=== PATIENT | male | born 1955 | race African-American/Black ===

== ENCOUNTER 2017-03-13 10:16 | Emergency (ER) | payer OTHER ==
[~2017-03-13] VITALS: Ht 175.3 cm; Wt 113.4 kg
[~2017-03-13 10:16] MED LIST: AMLO10TA2 PO; ARIP2TAB PO; ARIP5TAB6 PO; BICA50TA4 PO; CALC-507 PO; SITA50TA PO; htn med
[2017-03-13 10:35] VITALS: BP 130/71
[2017-03-13] MEDS ORDERED: DIPHTH,PERTUSS(ACELL),TET TOX 0.5 ML DISP.SYRIN. VAX IM ONE (11:15)
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
[2017-03-13] MEDS ORDERED: MELO-156 PO (11:30)
[2017-03-13] MEDS ORDERED: QUET100T4 PO (11:30)
[2017-03-13] MEDS ORDERED: SERT50TA PO (11:30)
[2017-03-13 11:31] LABS: BASO # 0.1 x10^3/uL (0.0-0.2); BASO % 1 % (0-3); EOS % 2 % (0-3); HEMATOCRIT 38.2 % (39.0-53.0); HEMOGLOBIN 12.5 g/dL (13.0-17.5); LYMPH # 1.4 x10^3/uL (1.0-4.8); LYMPH % 20 % (24-48); MEAN CORPUSCULAR HEMOGLOBIN 27 pg (25-35); MEAN CORPUSCULAR HGB CONC 33 g/dL (31-37); MEAN CORPUSCULAR VOLUME 82 fL (79-100); MONO % 12 % (0-9); NEUT % 65 % (31-73); PLATELET COUNT 204 x10^3/uL (140-400); RED BLOOD COUNT 4.64 x10^6/uL (4.30-5.70); RED CELL DISTRIBUTION WIDTH 16.5 % (11.5-14.5)
[2017-03-13 11:38] LABS: BILIRUBIN,URINE NEGATIVE (NEG); GLUCOSE,URINE NEGATIVE (NEG); NITRITE,URINE NEGATIVE (NEG); PROTEIN,URINE NEGATIVE (NEG-TRACE)
[2017-03-13 11:45] LABS: CALCIUM 8.8 mg/dL (8.5-10.1); CREATININE 0.8 mg/dL (0.7-1.3); GFR 119.7; POTASSIUM 4.2 mmol/L (3.5-5.1)
[2017-03-13 11:46] LABS: BACTERIA,URINE FEW /HPF (0-FEW); RBC,URINE 0 /HPF (0-2); SQUAMOUS EPITHELIAL CELL,UR MANY /LPF
[2017-03-13 11:50] LABS: ALBUMIN 3.3 g/dL (3.4-5.0); ALBUMIN/GLOBULIN RATIO 0.7 (1.0-1.7); TOTAL BILIRUBIN 0.4 mg/dL (0.2-1.0); TOTAL PROTEIN 8.1 g/dL (6.4-8.2)
--- NOTE | 2017-03-13 12:03 | EKG ---
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
--- NOTE | 2017-03-13 12:10 | RAD ---
One or more of the following individualized dose reduction techniques were utilized for this examination: 1. Automated exposure control 2. Adjustment of the mA and/or kV according to patient size 3. Use of iterative reconstruction technique CT of the brain without contrast. History: Poor historian, falls CT scan of brain was done without contrast. Visualized paranasal sinuses are clear. There is no skull fracture. There is no intracranial hemorrhage or subdural hematoma. Ventricles are normal in size. There is no mass or shift of the midline. There is decreased density in the white matter especially in the frontal lobes. There is no old study for comparison. Impression: 1. Decreased density in the white matter likely microvascular changes. 2. No intracranial hemorrhage or subdural hematoma noted. 3. No other acute finding.
[2017-03-13 12:12] LABS: BARBITURATES NEG (NEG); BENZODIAZEPINES NEG (NEG); CANNABINOIDS POS (NEG); COCAINE NEG (NEG); METHADONE NEG (NEG); OPIATES POS (NEG); PHENCYCLIDINE NEG (NEG)
--- NOTE | 2017-03-13 12:40 | RAD ---
Ultrasound of the abdomen complete. History: Left flank and abdominal pain with abrasion Ultrasound was used to evaluate the abdomen. Pancreas is poorly visualized, portions of the head and mid body were normal but the tail is obscured. A focal liver lesion is not identified. There is mild echogenicity of the liver suggesting fatty infiltration. Right kidney was 13 cm in length without a mass or hydronephrosis. Gallbladder was normal without gallstones or gallbladder wall thickening. Common duct was normal measuring 4 mm. Spleen is nonenlarged but not optimally visualized. Left kidney is 13.4 cm in length without a mass or hydronephrosis. The aorta and vena cava are poorly evaluated. Proximal aorta is 1.9 cm. Vena cava at the liver was normal. Impression: 1. Fatty infiltration of the liver. 2. Limited evaluation of the aorta, pancreas and spleen. 3. No other acute abnormality noted.
== END 2017-03-13 13:29 | disposition home or self-care (01) ==
LOC: ER 10:16
DX: S30.811A Abrasion of abdominal wall, initial encounter (principal); S80.211A Abrasion, right knee, initial encounter; M54.9 Dorsalgia, unspecified; F19.10 Other psychoactive substance abuse, uncomplicated; F31.9 Bipolar disorder, unspecified; E10.9 Type 1 diabetes mellitus without complications; I10 Essential (primary) hypertension; W19.XXXA Unspecified fall, initial encounter; Y93.89 Activity, other specified; Y92.89 Other specified places as the place of occurrence of the external cause; Y99.8 Other external cause status
CPT/HCPCS: 36415; 70450; 76700; 80053; 80305; 80320; 81001; 85027; 90471; 90715; 93005; G0480; G0481; 99285-25

== ENCOUNTER → 2017-06-26 | Outpatient (CLI) | payer OTHER ==
[~2017-06-26] MED LIST changes: -ARIP2TAB PO; +ARIP2TAB3 PO; +ARIP5TAB13 PO; -ARIP5TAB6 PO; +MELO7.5T29 PO; +QUET100T4 PO; +SERT50TA PO
[2017-06-26 13:53] LABS: BASO # 0.1 x10^3/uL (0.0-0.2); BASO % 1 % (0-3); EOS % 2 % (0-3); HEMATOCRIT 40.9 % (39.0-53.0); HEMOGLOBIN 13.2 g/dL (13.0-17.5); LYMPH # 1.8 x10^3/uL (1.0-4.8); LYMPH % 26 % (24-48); MEAN CORPUSCULAR HEMOGLOBIN 27 pg (25-35); MEAN CORPUSCULAR HGB CONC 32 g/dL (31-37); MEAN CORPUSCULAR VOLUME 84 fL (79-100); MONO % 11 % (0-9); NEUT % 60 % (31-73); PLATELET COUNT 184 x10^3/uL (140-400); RED BLOOD COUNT 4.88 x10^6/uL (4.30-5.70); RED CELL DISTRIBUTION WIDTH 17.3 % (11.5-14.5); WHITE BLOOD COUNT 6.9 x10^3/uL (4.0-11.0)
[2017-06-26 14:13] LABS: ALBUMIN 3.6 g/dL (3.4-5.0); ALBUMIN/GLOBULIN RATIO 0.8 (1.0-1.7); CALCIUM 9.2 mg/dL (8.5-10.1); CREATININE 0.8 mg/dL (0.7-1.3); GFR 119.3; POTASSIUM 3.9 mmol/L (3.5-5.1); TOTAL BILIRUBIN 0.3 mg/dL (0.2-1.0); TOTAL PROTEIN 8.4 g/dL (6.4-8.2)
[2017-06-26 14:14] LABS: CHOLESTEROL/HDL RATIO 4.5
== END | disposition home or self-care (01) ==
LOC: LAB 13:34
PROVIDERS: ATTEND Specialist
DX: I10 Essential (primary) hypertension (principal); E11.9 Type 2 diabetes mellitus without complications
CPT/HCPCS: 36415; 80053; 80061; 83036; 85025

== ENCOUNTER 2018-02-04 13:37 | Emergency (ER) | payer OTHER ==
[2018-02-04 13:53] LABS: POC GLUCOSE 247 mg/dL (70-99)
[2018-02-04 14:08] LABS: AGAP ISTAT 14 mmol/L (6-14); BUN ISTAT 7 mg/dL (8-26); CHLORIDE ISTAT 103 mmol/L (98-110); CREATININE ISTAT 0.8 mg/dL (0.5-1.4); GLUCOSE ISTAT 259 mg/dL (70-99); HEMATOCRIT ISTAT 42 % (37-52); HEMOGLOBIN ISTAT 14.3 g/dL (14-18); ION CA ISTAT 1.15 mmol/L (1.13-1.32); POTASSIUM ISTAT 3.7 mmol/L (3.5-5.0); SODIUM ISTAT 142 mmol/L (135-145); TOT CO2 ISTAT 29 mmol/L (23-32)
[2018-02-04] MEDS: IV NORMAL SALINE 1000ML BAG 1,000 ML IV (14:14)
[2018-02-04 15:24] LABS: BILIRUBIN,URINE NEGATIVE (NEG); CLARITY,URINE CLEAR; COLOR,URINE YELLOW; GLUCOSE,URINE >=1000 mg/dL (NEG); NITRITE,URINE NEGATIVE (NEG); PH,URINE 5.5; PROTEIN,URINE NEGATIVE (NEG-TRACE)
[2018-02-04 15:30] LABS: BACTERIA,URINE 0 /HPF (0-FEW); RBC,URINE RARE /HPF (0-2); WBC,URINE RARE /HPF (0-4)
[2018-02-04 15:31] LABS: SQUAMOUS EPITHELIAL CELL,UR MOD /LPF
== END 2018-02-04 15:23 | disposition home or self-care (01) ==
LOC: ER 13:37
DX: E11.65 Type 2 diabetes mellitus with hyperglycemia (principal); I10 Essential (primary) hypertension; F31.9 Bipolar disorder, unspecified
CPT/HCPCS: 36415; 80047; 81001; 82962; 85014; 85018; 96360; 99284-25; J7030

== ENCOUNTER 2018-04-23 10:17 | Emergency (ER) | payer OTHER ==
[2018-04-23 11:06] LABS: ADD MAN DIFF? NO
[2018-04-23 11:09] LABS: BASO # 0.1 x10^3/uL (0.0-0.2); BASO % 1 % (0-3); EOS # 0.2 x10^3/uL (0.0-0.7); EOS % 3 % (0-3); HEMOGLOBIN 14.5 g/dL (13.0-17.5); LYMPH # 1.3 x10^3/uL (1.0-4.8); LYMPH % 22 % (24-48); MEAN CORPUSCULAR HEMOGLOBIN 29 pg (25-35); MEAN CORPUSCULAR HGB CONC 34 g/dL (31-37); MEAN CORPUSCULAR VOLUME 85 fL (79-100); MONO # 0.6 x10^3/uL (0.0-1.1); MONO % 11 % (0-9); NEUT # 3.6 x10^3uL (1.8-7.7); NEUT % 63 % (31-73); PLATELET COUNT 217 x10^3/uL (140-400); RED BLOOD COUNT 5.05 x10^6/uL (4.30-5.70); RED CELL DISTRIBUTION WIDTH 17.8 % (11.5-14.5); WHITE BLOOD COUNT 5.8 x10^3/uL (4.0-11.0)
[2018-04-23 11:48] LABS: ETHANOL < 10 mg/dL (0-10)
[2018-04-23 11:55] LABS: ALBUMIN 3.6 g/dL (3.4-5.0); ALBUMIN/GLOBULIN RATIO 0.8 (1.0-1.7); ALK PHOS 60 U/L (46-116); ALT (SGPT) 52 U/L (16-63); ANION GAP 5 (6-14); AST (SGOT) 27 U/L (15-37); BLOOD UREA NITROGEN 12 mg/dL (8-26); BUN/CREATININE RATIO 13 (6-20); CALCIUM 8.6 mg/dL (8.5-10.1); CARBON DIOXIDE 31 mmol/L (21-32); CHLORIDE 103 mmol/L (98-107); CREATININE 0.9 mg/dL (0.7-1.3); GFR 103.8; GLUCOSE 105 mg/dL (70-99); POTASSIUM 4.1 mmol/L (3.5-5.1); SODIUM 139 mmol/L (136-145); TOTAL BILIRUBIN 0.4 mg/dL (0.2-1.0); TOTAL PROTEIN 8.1 g/dL (6.4-8.2)
[2018-04-23 12:06] LABS: CKMB INDEX 0.4 % (0-4); CKMB MASS 1.1 ng/mL (0.0-3.6); CREATINE KINASE 304 U/L (39-308)
[2018-04-23 12:12] LABS: TROPONINI < 0.017 ng/mL (0.000-0.055)
== END 2018-04-23 14:37 | disposition home or self-care (01) ==
LOC: ER 10:17
DX: S39.012A Strain of muscle, fascia and tendon of lower back, initial encounter (principal); S63.501A Unspecified sprain of right wrist, initial encounter; F10.129 Alcohol abuse with intoxication, unspecified; Z72.0 Tobacco use; F31.9 Bipolar disorder, unspecified; E11.9 Type 2 diabetes mellitus without complications; I10 Essential (primary) hypertension; W18.39XA Other fall on same level, initial encounter; Y93.89 Activity, other specified; Y99.8 Other external cause status; Y92.89 Other specified places as the place of occurrence of the external cause
CPT/HCPCS: 36415; 70450; 72100; 72125; 73110; 80053; 82553; 83735; 84484; 85025; 93005; 99285-25; G0480

== ENCOUNTER 2018-05-27 12:59 | Inpatient (IN) | payer OTHER ==
[~2018-05-27] VITALS: Ht 175.3 cm; Wt 117.9 kg
[~2018-05-27 12:59] MED LIST changes: +TRAM-48 PO
[2018-05-27] MEDS ORDERED: IPRATRPIUM/ALBUTEROL 0.5/2.5MG 3 ML NEBU. NEB ONE (14:30)
--- NOTE | 2018-05-27 14:35 | RAD ---
Portable chest, 05/27/2018: HISTORY: Weight cough Comparison is made to a study from 06/07/2014. The heart is at the upper limits of normal in size. The pulmonary vascularity is normal. The lung bases are partially obscured by the patient's overlying abdominal pannus. There is probably mild bibasilar atelectasis. The upper lung palma are clear. There is no evidence of pleural fluid. IMPRESSION: Mild basilar atelectasis. Electronically signed by: Man Gonzalez MD (05/27/2018 2:31 PM) [facility]
[2018-05-27] MEDS ORDERED: methylPREDNISolone SOD SUCC PF 125 MG/2 ML VIAL. IV ONE (14:45)
--- NOTE | 2018-05-27 16:32 | PHYS DOC ---
Past Medical History Past Medical History: Bipolar, Cancer, Diabetes-Type II, Hypertension Additional Past Medical Histor: prostate ca Past Surgical History: TURP Additional Past Surgical Histo: CA prostate, finger tips removed Alcohol Use: Heavy Drug Use: None Adult General Chief Complaint Chief Complaint: COUGH HPI HPI Patient is a 63 year old male with history of hypertension diabetes type 2, smoking, bipolar, who presents today with shortness of breath or month and a cough that began yesterday. Patient denies any chest pain. He arrives in the ED with oxygen saturations at 90 or even below on room air. Denies any previous oxygen use at home. PCP Dr. Larson. Review of Systems Review of Systems Constitutional: Denies fever or chills [] Eyes: Denies change in visual acuity, redness, or eye pain [] HENT: Denies nasal congestion or sore throat [] Respiratory: Reports cough and shortness of breath Cardiovascular: No additional information not addressed in HPI [] GI: Denies abdominal pain, nausea, vomiting, bloody stools or diarrhea [] : Denies dysuria or hematuria [] Musculoskeletal: Denies back pain or joint pain [] Integument: Denies rash or skin lesions [] Neurologic: Denies headache, focal weakness or sensory changes [] All other systems were reviewed and found to be within normal limits, except as documented in this note. Current Medications Current Medications Current Medications Medications (Trade) Dose Ordered Sig/Tiffanie Start Time Stop Time Status Last Admin Dose Admin Albuterol/ Ipratropium (Duoneb) 3 ml 1X ONCE 05/27/18 14:30 05/27/18 14:31 DC 05/27/18 14:42 3 ML Methylprednisolone Sodium Succinate (SOLU-Medrol 125MG VIAL) 125 mg 1X ONCE 05/27/18 14:45 05/27/18 14:46 DC 05/27/18 16:54 125 MG Allergies Allergies Allergies Coded Allergies Type Severity Reaction Last Updated Verified No Known Drug Allergies 06/07/14 No Physical Exam Physical Exam Constitutional: Obese. Well developed, well nourished, no acute distress, non- toxic appearance. [] HENT: Normocephalic, atraumatic, bilateral external ears normal, oropharynx moist, no oral exudates, nose normal. [] Eyes: PERRLA, EOMI, conjunctiva normal, no discharge. [] Neck: Normal range of motion, no tenderness, supple, no stridor. [] Cardiovascular:Heart rate regular rhythm, no murmur [] Lungs & Thorax: Diminished breath sounds posterior lung bases, patient is on oxygen 2 L. Abdomen: Bowel sounds normal, soft, no tenderness, no masses, no pulsatile masses. [] Skin: Warm, dry, no erythema, no rash. [] Back: No tenderness, no CVA tenderness. [] Extremities: No tenderness, no cyanosis, no clubbing, ROM intact, no edema. [] Neurologic: Alert and oriented X 3, normal motor function, normal sensory function, no focal deficits noted. [] Psychologic: Affect normal, judgement normal, mood normal. [] Current Patient Data Vital Signs Vital Signs Date Time Temp Pulse Resp B/P (MAP) Pulse Ox O2 Delivery O2 Flow Rate FiO2 05/27/18 14:42 91 Nasal Cannula 2.0 05/27/18 13:50 97.9 85 20 125/74 (91) 97.9 EKG EKG 16:[address] Diana sinus rhythm heart rate 85 no STEMI[] Radiology/Procedures Radiology/Procedures []PROCEDURE: CHEST AP ONLY Portable chest, 05/27/2018: HISTORY: Weight cough Comparison is made to a study from 06/07/2014. The heart is at the upper limits of normal in size. The pulmonary vascularity is normal. The lung bases are partially obscured by the patient's overlying abdominal pannus. There is probably mild bibasilar atelectasis. The upper lung palma are clear. There is no evidence of pleural fluid. IMPRESSION: Mild basilar atelectasis. Electronically signed by: Man Gonzalez MD (05/27/2018 2:31 PM) [facility] DICTATED and SIGNED BY: MAN GONZALEZ MD DATE: 05/27/18 1429 Course & Med Decision Making Course & Med Decision Making Pertinent Labs and Imaging studies reviewed. (See chart for details) This is a 63-year-old male patient with history of smoking presenting today with cough and shortness of breath since yesterday. Patient arrives in the ED with oxygen saturations at 90% on room air and sometimes below 90%. We put him on oxygen 2 L. Saturations improved and remained above 90%. He was given a breathing treatment. Given Solu-Medrol. Tried weaning him off oxygen with no success. We'll get him admitted. Dragon Disclaimer Dragon Disclaimer This electronic medical record was generated, in whole or in part, using a voice recognition dictation system. Departure Departure Impression: Primary Impression: COPD exacerbation Additional Impressions: Cough Shortness of breath Disposition: ADMITTED INPATIENT Condition: STABLE Referrals: SAMEERA HIGUERA MD (PCP) Problem Qualifiers GINO MERIDA APRN May 27, 2018 16:32
[2018-05-27 16:43] LABS: BASO # 0.1 x10^3/uL (0.0-0.2); BASO % 1 % (0-3); EOS # 0.2 x10^3/uL (0.0-0.7); EOS % 2 % (0-3); HEMATOCRIT 38.2 % (39.0-53.0); HEMOGLOBIN 12.6 g/dL (13.0-17.5); LYMPH # 1.7 x10^3/uL (1.0-4.8); LYMPH % 20 % (24-48); MEAN CORPUSCULAR HEMOGLOBIN 28 pg (25-35); MEAN CORPUSCULAR HGB CONC 33 g/dL (31-37); MEAN CORPUSCULAR VOLUME 85 fL (79-100); MONO # 1.1 x10^3/uL (0.0-1.1); MONO % 12 % (0-9); NEUT # 5.7 x10^3uL (1.8-7.7); NEUT % 65 % (31-73); PLATELET COUNT 194 x10^3/uL (140-400); RED BLOOD COUNT 4.48 x10^6/uL (4.30-5.70); RED CELL DISTRIBUTION WIDTH 16.8 % (11.5-14.5); WHITE BLOOD COUNT 8.7 x10^3/uL (4.0-11.0)
[2018-05-27 16:52] LABS: CREATININE 0.8 mg/dL (0.7-1.3); GFR 118.9; POTASSIUM 3.3 mmol/L (3.5-5.1)
[2018-05-27] MEDS ORDERED: DEXTROSE 50% 25 GM / 50ML DISP.SYRIN. IV PRN ×2 (17:00→17:30)
[2018-05-27] MEDS ORDERED: MORPHINE SULFATE 4 MG/ML DISP.SYRIN. IV PRN (17:00)
[2018-05-27] MEDS ORDERED: INSULIN LISPRO 300 UNITS/3 ML INSULN.PEN. SQ SCH (17:00)
[2018-05-27] MEDS ORDERED: ACETAMINOPHEN 325 MG TABLET. PO PRN ×2 (17:00→17:30)
[2018-05-27] MEDS ORDERED: ONDANSETRON PF 4 MG/2 ML VIAL. IV PRN ×2 (17:00→17:30)
--- NOTE | 2018-05-27 17:28 | PDOC1 ---
History and Physical Date of Admission Date of Admission 05/27/18 Identification/Chief Complaint Chief Complaint COUGH ,SOB Source Source: Caregiver, Chart review, Patient History of Present Illness History of Present Illness HPI Patient is a 63 year old male with history of hypertension diabetes type 2, smoking, bipolar, COMes to ER for sob. 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 He started to cough a lot from yesterday, with yellow sputum, sob, child care leader called EMS who suggested him to come to ER, and he said he would come today. Pt had some wheezing. He has no home o2, now on NC2L IN ER, looks calm. Denies chest pain, fever, had chills. He also has bl leg severe edema for 1 week , feels abd distended. He arrives in the ED with oxygen saturations at 90 or even below on room air. last year MPI neg with EF 55%. Past Medical History Cardiovascular: HTN Pulmonary: No pertinent hx GI: GERD Heme/Onc: Cancer Hepatobiliary: No pertinent hx Psych: Bipolar Rheumatologic: No pertinent hx Infectious disease: No pertinent hx Renal/: No pertinent hx Endocrine: Diabetes Past Surgical History Past Surgical History: Other Family History Family History: Hypertension Social History Smoke: 1 pack per day ALCOHOL: occassional Drugs: None Current Problem List Problem List Problems Medical Problems: (1) COPD exacerbation Status: Acute (2) Cough Status: Acute (3) Shortness of breath Status: Acute Current Medications Current Medications Current Medications Medications (Trade) Dose Ordered Sig/Tiffanie Start Time Stop Time Status Last Admin Dose Admin Acetaminophen (Tylenol) 650 mg PRN Q6HRS PRN 05/27/18 17:30 UNV Albuterol Sulfate (Ventolin Neb Soln) 2.5 mg PRN Q2HR PRN 05/27/18 17:30 UNV Albuterol/ Ipratropium (Duoneb) 3 ml RTQID 05/27/18 20:00 UNV Dextrose (Dextrose 50%-Water Syringe) 12.5 gm PRN Q15MIN PRN 05/27/18 17:00 Docusate Sodium (Colace) 100 mg PRN DAILY PRN 05/27/18 17:30 UNV Guaifenesin (Mucinex) 600 mg BID 05/27/18 21:00 UNV Hydralazine HCl (Apresoline Inj) 10 mg PRN Q4HRS PRN 05/27/18 17:30 UNV Insulin Human Lispro (HumaLOG) 0-5 UNITS TIDWMEALS 05/27/18 17:00 Methylprednisolone Sodium Succinate (SOLU-Medrol 40MG VIAL) 40 mg Q8HRS 05/27/18 22:00 Methylprednisolone Sodium Succinate (SOLU-Medrol 125MG VIAL) 125 mg 1X ONCE 05/27/18 14:45 05/27/18 14:46 DC 05/27/18 16:54 125 MG Morphine Sulfate (Morphine Sulfate) 2 mg PRN Q2HR PRN 05/27/18 17:30 UNV Ondansetron HCl (Zofran) 4 mg PRN Q6HRS PRN 05/27/18 17:30 UNV Tramadol HCl (Ultram) 50 mg PRN Q6HRS PRN 05/27/18 17:30 UNV Allergies Allergies Allergies Coded Allergies Type Severity Reaction Last Updated Verified No Known Drug Allergies 06/07/14 No ROS Review of System CONSTITUTIONAL: No fever or chills EYES: No recent changes SKIN: No rash or itching CARDIOVASCULAR: No chest pain, syncope, palpitations, or edema RESPIRATORY: No SOB or cough GASTROINTESTINAL: No nausea, vomiting or abdominal pain NEUROLOGICAL: No headaches or weakness ENDOCRINE: No cold or heat intolerance GENITOURINARY: No urgency or frequency of urination MUSCULOSKELETAL: No back pain or joint pain LYMPHATICS: No enlarged lymph nodes PSYCHIATRIC: No anxiety or depression Physical Exam Physical Exam GEN.: No apparent distress. Alert and oriented. on NC 2l. HEENT: Head is normocephalic, atraumatic NECK: Supple. LUNGS: bl decreased bs, mild wheezing. HEART: RRR, S1, S2 present. Peripheral pulses intact ABDOMEN: Soft, nontender. Positive bowel sounds. mild distended abd, tight. EXTREMITIES: Without any cyanosis. bl lower ext 3+ pitting edema. rt 5th finger amputated. NEUROLOGIC: Normal speech, normal tone PSYCHIATRIC: Normal affect, normal mood. SKIN: No ulcerations Vitals Vitals Vital Signs Date Time Temp Pulse Resp B/P (MAP) Pulse Ox O2 Delivery O2 Flow Rate FiO2 05/27/18 14:42 91 Nasal Cannula 2.0 05/27/18 13:50 97.9 85 20 125/74 (91) 97.9 Labs Labs Laboratory Tests Test 05/27/18 16:30 White Blood Count 8.7 x10^3/uL (4.0-11.0) Red Blood Count 4.48 x10^6/uL (4.30-5.70) Hemoglobin 12.6 g/dL (13.0-17.5) Hematocrit 38.2 % (39.0-53.0) Mean Corpuscular Volume 85 fL (79-100) Mean Corpuscular Hemoglobin 28 pg (25-35) Mean Corpuscular Hemoglobin Concent 33 g/dL (31-37) Red Cell Distribution Width 16.8 % (11.5-14.5) Platelet Count 194 x10^3/uL (140-400) Neutrophils (%) (Auto) 65 % (31-73) Lymphocytes (%) (Auto) 20 % (24-48) Monocytes (%) (Auto) 12 % (0-9) Eosinophils (%) (Auto) 2 % (0-3) Basophils (%) (Auto) 1 % (0-3) Neutrophils # (Auto) 5.7 x10^3uL (1.8-7.7) Lymphocytes # (Auto) 1.7 x10^3/uL (1.0-4.8) Monocytes # (Auto) 1.1 x10^3/uL (0.0-1.1) Eosinophils # (Auto) 0.2 x10^3/uL (0.0-0.7) Basophils # (Auto) 0.1 x10^3/uL (0.0-0.2) Sodium Level 137 mmol/L (136-145) Potassium Level 3.3 mmol/L (3.5-5.1) Chloride Level 103 mmol/L (98-107) Carbon Dioxide Level 28 mmol/L (21-32) Anion Gap 6 (6-14) Blood Urea Nitrogen 12 mg/dL (8-26) Creatinine 0.8 mg/dL (0.7-1.3) Estimated GFR (Cockcroft-Gault) 118.9 Glucose Level 129 mg/dL (70-99) Calcium Level 9.0 mg/dL (8.5-10.1) Creatine Kinase 582 U/L (39-308) Creatine Kinase MB (Mass) 1.6 ng/mL (0.0-3.6) Creatine Kinase MB Relative Index 0.3 % (0-4) Troponin I Quantitative 0.029 ng/mL (0.000-0.055) Laboratory Tests Test 05/27/18 16:30 White Blood Count 8.7 x10^3/uL (4.0-11.0) Red Blood Count 4.48 x10^6/uL (4.30-5.70) Hemoglobin 12.6 g/dL (13.0-17.5) Hematocrit 38.2 % (39.0-53.0) Mean Corpuscular Volume 85 fL (79-100) Mean Corpuscular Hemoglobin 28 pg (25-35) Mean Corpuscular Hemoglobin Concent 33 g/dL (31-37) Red Cell Distribution Width 16.8 % (11.5-14.5) Platelet Count 194 x10^3/uL (140-400) Neutrophils (%) (Auto) 65 % (31-73) Lymphocytes (%) (Auto) 20 % (24-48) Monocytes (%) (Auto) 12 % (0-9) Eosinophils (%) (Auto) 2 % (0-3) Basophils (%) (Auto) 1 % (0-3) Neutrophils # (Auto) 5.7 x10^3uL (1.8-7.7) Lymphocytes # (Auto) 1.7 x10^3/uL (1.0-4.8) Monocytes # (Auto) 1.1 x10^3/uL (0.0-1.1) Eosinophils # (Auto) 0.2 x10^3/uL (0.0-0.7) Basophils # (Auto) 0.1 x10^3/uL (0.0-0.2) Sodium Level 137 mmol/L (136-145) Potassium Level 3.3 mmol/L (3.5-5.1) Chloride Level 103 mmol/L (98-107) Carbon Dioxide Level 28 mmol/L (21-32) Anion Gap 6 (6-14) Blood Urea Nitrogen 12 mg/dL (8-26) Creatinine 0.8 mg/dL (0.7-1.3) Estimated GFR (Cockcroft-Gault) 118.9 Glucose Level 129 mg/dL (70-99) Calcium Level 9.0 mg/dL (8.5-10.1) Creatine Kinase 582 U/L (39-308) Creatine Kinase MB (Mass) 1.6 ng/mL (0.0-3.6) Creatine Kinase MB Relative Index 0.3 % (0-4) Troponin I Quantitative 0.029 ng/mL (0.000-0.055) VTE Prophylaxis Ordered VTE Prophylaxis Devices: Yes VTE Pharmacological Prophylaxi: Yes Assessment/Plan Assessment/Plan acute resp failure, hypoxia copd exacerbation given smoking bronchitis need to rule out CHF exacerbation dm2 htn 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 ABG lasix 40mg iv daily doxy solemedrol ssi duoneb dvt, gi ppx PTOT BASILIO PATINO MD May 27, 2018 17:28
[2018-05-27] MEDS ORDERED: MORPHINE SULFATE 2 MG/ML DISP.SYRIN. IV PRN (17:30)
[2018-05-27] MEDS ORDERED: POTASSIUM CHLORIDE 20 MEQ TABLET.ER. PO ONE (17:30)
[2018-05-27] MEDS ORDERED: DOCUSATE SODIUM 100 MG CAPSULE. PO PRN (17:30)
[2018-05-27] MEDS ORDERED: traMADol 50 MG TABLET PO PRN (17:30)
[2018-05-27] MEDS: IPRATRPIUM/ALBUTEROL 0.5/2.5MG 3 ML NEBU. NEB SCH ×2 (17:30→21:46)
[2018-05-27] MEDS ORDERED: ALBUTEROL SULFATE 2.5 MG/3 ML NEBU. NEB PRN (17:30)
[2018-05-27] MEDS ORDERED: hydrALAZINE 20 MG/ML VIAL. IVP PRN (17:30)
[2018-05-27 17:48] VITALS: BP 129/68
[2018-05-27] MEDS: FUROSEMIDE 40 MG/4 ML VIAL. IVP SCH (18:14)
[2018-05-27] MEDS: ENOXAPARIN 40 MG/0.4 ML SYRINGE. SQ SCH (18:15)
[2018-05-27 19:00] VITALS: BP 147/82
[2018-05-27] MEDS ORDERED: IPRATRPIUM/ALBUTEROL 0.5/2.5MG 3 ML NEBU. NEB SCH (20:00)
[2018-05-27] MEDS: DOXYCYCLINE HYCLATE 100 MG TABLET PO SCH (22:11)
[2018-05-27] MEDS: FAMOTIDINE 20 MG TABLET. PO SCH (22:11)
[2018-05-27] MEDS: LACTOBACILLUS RHAMNOSUS GG 1 CAPSULE. PO SCH (22:11)
[2018-05-27] MEDS: methylPREDNISolone SOD SUCC PF 40 MG/ML VIAL. IV SCH (22:15)
[2018-05-27 23:00] VITALS: BP 121/71
[2018-05-27 23:02] LABS: BASE EXCESS ABG 3 mmol/L (-3-3); HCO3 ABG 28 mmol/L (21-28); PCO2 ABG 43 mmHg (35-46); PO2 ABG 59 mmHg (65-108); SAT O2 ABG 91 % (92-99)
[2018-05-27] MEDS ORDERED: GLIM4TAB2 PO (23:39)
[2018-05-27] MEDS ORDERED: GABA300C8 PO (23:39)
[2018-05-27] MEDS ORDERED: ATOR40TA59 PO (23:39)
[2018-05-28 03:00] VITALS: BP 128/77
[2018-05-28] MEDS: methylPREDNISolone SOD SUCC PF 40 MG/ML VIAL. IV SCH ×3 (05:47→21:49)
--- NOTE | 2018-05-28 06:43 | EKG ---
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
[2018-05-28 07:00] VITALS: BP 122/69
[2018-05-28 07:11] LABS: BASO % 1 % (0-3); EOS % 0 % (0-3); HEMATOCRIT 41.4 % (39.0-53.0); HEMOGLOBIN 13.9 g/dL (13.0-17.5); LYMPH # 0.8 x10^3/uL (1.0-4.8); LYMPH % 9 % (24-48); MEAN CORPUSCULAR HEMOGLOBIN 29 pg (25-35); MEAN CORPUSCULAR HGB CONC 34 g/dL (31-37); MEAN CORPUSCULAR VOLUME 85 fL (79-100); MONO # 0.1 x10^3/uL (0.0-1.1); MONO % 1 % (0-9); NEUT # 8.2 x10^3uL (1.8-7.7); NEUT % 89 % (31-73); PLATELET COUNT 195 x10^3/uL (140-400); RED BLOOD COUNT 4.89 x10^6/uL (4.30-5.70); RED CELL DISTRIBUTION WIDTH 16.8 % (11.5-14.5); WHITE BLOOD COUNT 9.2 x10^3/uL (4.0-11.0)
[2018-05-28] MEDS: IPRATRPIUM/ALBUTEROL 0.5/2.5MG 3 ML NEBU. NEB SCH ×4 (07:16→19:47)
[2018-05-28 07:26] LABS: CALCIUM 8.8 mg/dL (8.5-10.1); CREATININE 0.9 mg/dL (0.7-1.3); GFR 103.8; POTASSIUM 3.8 mmol/L (3.5-5.1)
[2018-05-28] MEDS: DOXYCYCLINE HYCLATE 100 MG TABLET PO SCH ×2 (08:29→21:49)
[2018-05-28] MEDS: LACTOBACILLUS RHAMNOSUS GG 1 CAPSULE. PO SCH ×2 (08:29→21:48)
[2018-05-28] MEDS: FUROSEMIDE 40 MG/4 ML VIAL. IVP SCH (08:30)
[2018-05-28] MEDS: INSULIN LISPRO 300 UNITS/3 ML INSULN.PEN. SQ SCH ×3 (08:37→17:43)
[2018-05-28 11:00] VITALS: BP 125/74
--- NOTE | 2018-05-28 11:31 | PDOC ---
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 hypokalemia History of Present Illness History of Present Illness breathing better Decreased breath sounds, poor effort, increased AP diameter but I could not appreciate audible wheezing CXR atelectasis, poor effort Plan CPM Aim discharge tomorrow-I discussed with him he agrees Vitals Vitals Vital Signs Date Time Temp Pulse Resp B/P (MAP) Pulse Ox O2 Delivery O2 Flow Rate FiO2 05/28/18 11:18 Room Air 05/28/18 11:00 98.1 75 16 125/74 (91) 91 98.1 05/28/18 07:50 3.0 Physical Exam General: Alert, Oriented X3, Cooperative, No acute distress Heart: Regular rate, Normal S1, Normal S2 Lungs: Other (decrease breath sounds) Abdomen: No tenderness Extremities: No clubbing, No cyanosis, No edema Skin: No rashes, No breakdown, No significant lesion Labs LABS Laboratory Tests Test 05/27/18 16:30 05/27/18 17:25 05/27/18 17:52 05/27/18 20:58 White Blood Count 8.7 x10^3/uL (4.0-11.0) Red Blood Count 4.48 x10^6/uL (4.30-5.70) Hemoglobin 12.6 g/dL (13.0-17.5) Hematocrit 38.2 % (39.0-53.0) Mean Corpuscular Volume 85 fL (79-100) Mean Corpuscular Hemoglobin 28 pg (25-35) Mean Corpuscular Hemoglobin Concent 33 g/dL (31-37) Red Cell Distribution Width 16.8 % (11.5-14.5) Platelet Count 194 x10^3/uL (140-400) Neutrophils (%) (Auto) 65 % (31-73) Lymphocytes (%) (Auto) 20 % (24-48) Monocytes (%) (Auto) 12 % (0-9) Eosinophils (%) (Auto) 2 % (0-3) Basophils (%) (Auto) 1 % (0-3) Neutrophils # (Auto) 5.7 x10^3uL (1.8-7.7) Lymphocytes # (Auto) 1.7 x10^3/uL (1.0-4.8) Monocytes # (Auto) 1.1 x10^3/uL (0.0-1.1) Eosinophils # (Auto) 0.2 x10^3/uL (0.0-0.7) Basophils # (Auto) 0.1 x10^3/uL (0.0-0.2) Sodium Level 137 mmol/L (136-145) Potassium Level 3.3 mmol/L (3.5-5.1) Chloride Level 103 mmol/L (98-107) Carbon Dioxide Level 28 mmol/L (21-32) Anion Gap 6 (6-14) Blood Urea Nitrogen 12 mg/dL (8-26) Creatinine 0.8 mg/dL (0.7-1.3) Estimated GFR (Cockcroft-Gault) 118.9 Glucose Level 129 mg/dL (70-99) Calcium Level 9.0 mg/dL (8.5-10.1) Creatine Kinase 582 U/L (39-308) Creatine Kinase MB (Mass) 1.6 ng/mL (0.0-3.6) Creatine Kinase MB Relative Index 0.3 % (0-4) Troponin I Quantitative 0.029 ng/mL (0.000-0.055) JT-Zrn-T-Type Natriuretic Peptide 23 pg/mL (0-124) O2 Saturation 91 % (92-99) Arterial Blood pH 7.43 (7.35-7.45) Arterial Blood pCO2 at Patient Temp 43 mmHg (35-46) Arterial Blood pO2 at Patient Temp 59 mmHg (65-108) Arterial Blood HCO3 28 mmol/L (21-28) Arterial Blood Base Excess 3 mmol/L (-3-3) FiO2 28.0 Glucose (Fingerstick) 114 mg/dL (70-99) 201 mg/dL (70-99) Test 05/28/18 06:55 05/28/18 07:46 05/28/18 11:02 White Blood Count 9.2 x10^3/uL (4.0-11.0) Red Blood Count 4.89 x10^6/uL (4.30-5.70) Hemoglobin 13.9 g/dL (13.0-17.5) Hematocrit 41.4 % (39.0-53.0) Mean Corpuscular Volume 85 fL (79-100) Mean Corpuscular Hemoglobin 29 pg (25-35) Mean Corpuscular Hemoglobin Concent 34 g/dL (31-37) Red Cell Distribution Width 16.8 % (11.5-14.5) Platelet Count 195 x10^3/uL (140-400) Neutrophils (%) (Auto) 89 % (31-73) Lymphocytes (%) (Auto) 9 % (24-48) Monocytes (%) (Auto) 1 % (0-9) Eosinophils (%) (Auto) 0 % (0-3) Basophils (%) (Auto) 1 % (0-3) Neutrophils # (Auto) 8.2 x10^3uL (1.8-7.7) Lymphocytes # (Auto) 0.8 x10^3/uL (1.0-4.8) Monocytes # (Auto) 0.1 x10^3/uL (0.0-1.1) Eosinophils # (Auto) 0.0 x10^3/uL (0.0-0.7) Basophils # (Auto) 0.0 x10^3/uL (0.0-0.2) Sodium Level 135 mmol/L (136-145) Potassium Level 3.8 mmol/L (3.5-5.1) Chloride Level 100 mmol/L (98-107) Carbon Dioxide Level 28 mmol/L (21-32) Anion Gap 7 (6-14) Blood Urea Nitrogen 12 mg/dL (8-26) Creatinine 0.9 mg/dL (0.7-1.3) Estimated GFR (Cockcroft-Gault) 103.8 Glucose Level 252 mg/dL (70-99) Calcium Level 8.8 mg/dL (8.5-10.1) Glucose (Fingerstick) 235 mg/dL (70-99) 305 mg/dL (70-99) Review of Systems Review of Systems A 14 point ROS was completed with the following noted as positive: Other systems reviewed and negative. \CONSTITUTIONAL: No fever or chills EYES: No recent changes SKIN: No rash or itching CARDIOVASCULAR: No chest pain, syncope, palpitations, or edema RESPIRATORY: No SOB or cough GASTROINTESTINAL: No nausea, vomiting or abdominal pain NEUROLOGICAL: No headaches or weakness ENDOCRINE: No cold or heat intolerance GENITOURINARY: No urgency or frequency of urination MUSCULOSKELETAL: No back pain or joint pain LYMPHATICS: No enlarged lymph nodes PSYCHIATRIC: No anxiety or depression Assessment and Plan Assessmemt and Plan Problems Medical Problems: (1) COPD exacerbation Status: Acute (2) Cough Status: Acute (3) Shortness of breath Status: Acute Comment Review of Relevant I have reviewed the following items timbo (where applicable) has been applied. Labs Laboratory Tests Test 05/27/18 16:30 05/27/18 17:25 05/27/18 17:52 05/27/18 20:58 White Blood Count 8.7 x10^3/uL (4.0-11.0) Red Blood Count 4.48 x10^6/uL (4.30-5.70) Hemoglobin 12.6 g/dL (13.0-17.5) Hematocrit 38.2 % (39.0-53.0) Mean Corpuscular Volume 85 fL (79-100) Mean Corpuscular Hemoglobin 28 pg (25-35) Mean Corpuscular Hemoglobin Concent 33 g/dL (31-37) Red Cell Distribution Width 16.8 % (11.5-14.5) Platelet Count 194 x10^3/uL (140-400) Neutrophils (%) (Auto) 65 % (31-73) Lymphocytes (%) (Auto) 20 % (24-48) Monocytes (%) (Auto) 12 % (0-9) Eosinophils (%) (Auto) 2 % (0-3) Basophils (%) (Auto) 1 % (0-3) Neutrophils # (Auto) 5.7 x10^3uL (1.8-7.7) Lymphocytes # (Auto) 1.7 x10^3/uL (1.0-4.8) Monocytes # (Auto) 1.1 x10^3/uL (0.0-1.1) Eosinophils # (Auto) 0.2 x10^3/uL (0.0-0.7) Basophils # (Auto) 0.1 x10^3/uL (0.0-0.2) Sodium Level 137 mmol/L (136-145) Potassium Level 3.3 mmol/L (3.5-5.1) Chloride Level 103 mmol/L (98-107) Carbon Dioxide Level 28 mmol/L (21-32) Anion Gap 6 (6-14) Blood Urea Nitrogen 12 mg/dL (8-26) Creatinine 0.8 mg/dL (0.7-1.3) Estimated GFR (Cockcroft-Gault) 118.9 Glucose Level 129 mg/dL (70-99) Calcium Level 9.0 mg/dL (8.5-10.1) Creatine Kinase 582 U/L (39-308) Creatine Kinase MB (Mass) 1.6 ng/mL (0.0-3.6) Creatine Kinase MB Relative Index 0.3 % (0-4) Troponin I Quantitative 0.029 ng/mL (0.000-0.055) BR-Eez-A-Type Natriuretic Peptide 23 pg/mL (0-124) O2 Saturation 91 % (92-99) Arterial Blood pH 7.43 (7.35-7.45) Arterial Blood pCO2 at Patient Temp 43 mmHg (35-46) Arterial Blood pO2 at Patient Temp 59 mmHg (65-108) Arterial Blood HCO3 28 mmol/L (21-28) Arterial Blood Base Excess 3 mmol/L (-3-3) FiO2 28.0 Glucose (Fingerstick) 114 mg/dL (70-99) 201 mg/dL (70-99) Test 05/28/18 06:55 05/28/18 07:46 05/28/18 11:02 White Blood Count 9.2 x10^3/uL (4.0-11.0) Red Blood Count 4.89 x10^6/uL (4.30-5.70) Hemoglobin 13.9 g/dL (13.0-17.5) Hematocrit 41.4 % (39.0-53.0) Mean Corpuscular Volume 85 fL (79-100) Mean Corpuscular Hemoglobin 29 pg (25-35) Mean Corpuscular Hemoglobin Concent 34 g/dL (31-37) Red Cell Distribution Width 16.8 % (11.5-14.5) Platelet Count 195 x10^3/uL (140-400) Neutrophils (%) (Auto) 89 % (31-73) Lymphocytes (%) (Auto) 9 % (24-48) Monocytes (%) (Auto) 1 % (0-9) Eosinophils (%) (Auto) 0 % (0-3) Basophils (%) (Auto) 1 % (0-3) Neutrophils # (Auto) 8.2 x10^3uL (1.8-7.7) Lymphocytes # (Auto) 0.8 x10^3/uL (1.0-4.8) Monocytes # (Auto) 0.1 x10^3/uL (0.0-1.1) Eosinophils # (Auto) 0.0 x10^3/uL (0.0-0.7) Basophils # (Auto) 0.0 x10^3/uL (0.0-0.2) Sodium Level 135 mmol/L (136-145) Potassium Level 3.8 mmol/L (3.5-5.1) Chloride Level 100 mmol/L (98-107) Carbon Dioxide Level 28 mmol/L (21-32) Anion Gap 7 (6-14) Blood Urea Nitrogen 12 mg/dL (8-26) Creatinine 0.9 mg/dL (0.7-1.3) Estimated GFR (Cockcroft-Gault) 103.8 Glucose Level 252 mg/dL (70-99) Calcium Level 8.8 mg/dL (8.5-10.1) Glucose (Fingerstick) 235 mg/dL (70-99) 305 mg/dL (70-99) Laboratory Tests Test 05/27/18 16:30 05/27/18 17:25 05/27/18 17:52 05/27/18 20:58 White Blood Count 8.7 x10^3/uL (4.0-11.0) Red Blood Count 4.48 x10^6/uL (4.30-5.70) Hemoglobin 12.6 g/dL (13.0-17.5) Hematocrit 38.2 % (39.0-53.0) Mean Corpuscular Volume 85 fL (79-100) Mean Corpuscular Hemoglobin 28 pg (25-35) Mean Corpuscular Hemoglobin Concent 33 g/dL (31-37) Red Cell Distribution Width 16.8 % (11.5-14.5) Platelet Count 194 x10^3/uL (140-400) Neutrophils (%) (Auto) 65 % (31-73) Lymphocytes (%) (Auto) 20 % (24-48) Monocytes (%) (Auto) 12 % (0-9) Eosinophils (%) (Auto) 2 % (0-3) Basophils (%) (Auto) 1 % (0-3) Neutrophils # (Auto) 5.7 x10^3uL (1.8-7.7) Lymphocytes # (Auto) 1.7 x10^3/uL (1.0-4.8) Monocytes # (Auto) 1.1 x10^3/uL (0.0-1.1) Eosinophils # (Auto) 0.2 x10^3/uL (0.0-0.7) Basophils # (Auto) 0.1 x10^3/uL (0.0-0.2) Sodium Level 137 mmol/L (136-145) Potassium Level 3.3 mmol/L (3.5-5.1) Chloride Level 103 mmol/L (98-107) Carbon Dioxide Level 28 mmol/L (21-32) Anion Gap 6 (6-14) Blood Urea Nitrogen 12 mg/dL (8-26) Creatinine 0.8 mg/dL (0.7-1.3) Estimated GFR (Cockcroft-Gault) 118.9 Glucose Level 129 mg/dL (70-99) Calcium Level 9.0 mg/dL (8.5-10.1) Creatine Kinase 582 U/L (39-308) Creatine Kinase MB (Mass) 1.6 ng/mL (0.0-3.6) Creatine Kinase MB Relative Index 0.3 % (0-4) Troponin I Quantitative 0.029 ng/mL (0.000-0.055) EC-Mbb-F-Type Natriuretic Peptide 23 pg/mL (0-124) O2 Saturation 91 % (92-99) Arterial Blood pH 7.43 (7.35-7.45) Arterial Blood pCO2 at Patient Temp 43 mmHg (35-46) Arterial Blood pO2 at Patient Temp 59 mmHg (65-108) Arterial Blood HCO3 28 mmol/L (21-28) Arterial Blood Base Excess 3 mmol/L (-3-3) FiO2 28.0 Glucose (Fingerstick) 114 mg/dL (70-99) 201 mg/dL (70-99) Test 05/28/18 06:55 05/28/18 07:46 05/28/18 11:02 White Blood Count 9.2 x10^3/uL (4.0-11.0) Red Blood Count 4.89 x10^6/uL (4.30-5.70) Hemoglobin 13.9 g/dL (13.0-17.5) Hematocrit 41.4 % (39.0-53.0) Mean Corpuscular Volume 85 fL (79-100) Mean Corpuscular Hemoglobin 29 pg (25-35) Mean Corpuscular Hemoglobin Concent 34 g/dL (31-37) Red Cell Distribution Width 16.8 % (11.5-14.5) Platelet Count 195 x10^3/uL (140-400) Neutrophils (%) (Auto) 89 % (31-73) Lymphocytes (%) (Auto) 9 % (24-48) Monocytes (%) (Auto) 1 % (0-9) Eosinophils (%) (Auto) 0 % (0-3) Basophils (%) (Auto) 1 % (0-3) Neutrophils # (Auto) 8.2 x10^3uL (1.8-7.7) Lymphocytes # (Auto) 0.8 x10^3/uL (1.0-4.8) Monocytes # (Auto) 0.1 x10^3/uL (0.0-1.1) Eosinophils # (Auto) 0.0 x10^3/uL (0.0-0.7) Basophils # (Auto) 0.0 x10^3/uL (0.0-0.2) Sodium Level 135 mmol/L (136-145) Potassium Level 3.8 mmol/L (3.5-5.1) Chloride Level 100 mmol/L (98-107) Carbon Dioxide Level 28 mmol/L (21-32) Anion Gap 7 (6-14) Blood Urea Nitrogen 12 mg/dL (8-26) Creatinine 0.9 mg/dL (0.7-1.3) Estimated GFR (Cockcroft-Gault) 103.8 Glucose Level 252 mg/dL (70-99) Calcium Level 8.8 mg/dL (8.5-10.1) Glucose (Fingerstick) 235 mg/dL (70-99) 305 mg/dL (70-99) Medications Current Medications Albuterol/ Ipratropium (Duoneb) 3 ml 1X ONCE NEB Last administered on at 14:42; Start 05/27/18 at 14:30; Stop 05/27/18 at 14:31; Status DC Methylprednisolone Sodium Succinate (SOLU-Medrol 125MG VIAL) 125 mg 1X ONCE IV Last administered on 05/27/18at 16:54; Start 05/27/18 at 14:45; Stop 05/27/18 at 14:46; Status DC Ondansetron HCl (Zofran) 4 mg PRN Q8HRS PRN IV NAUSEA/VOMITING; Start 05/27/18 at 17:00; Stop 05/27/18 at 17:28; Status DC Morphine Sulfate (Morphine Sulfate) 4 mg PRN Q2HR PRN IV PAIN; Start 05/27/18 at 17:00; Stop 05/27/18 at 17:28; Status DC Acetaminophen (Tylenol) 650 mg PRN Q4HRS PRN PO FEVER; Start 05/27/18 at 17:00 ; Stop 05/27/18 at 17:28; Status DC Albuterol/ Ipratropium (Duoneb) 3 ml RTQID NEB ; Start 05/27/18 at 20:00; Stop 05/28/18 at 19:59; Status Cancel Methylprednisolone Sodium Succinate (SOLU-Medrol 40MG VIAL) 40 mg Q8HRS IV Last administered on 05/28/18at 05:47; Start 05/27/18 at 22:00 Insulin Human Lispro (HumaLOG) 0-5 UNITS TIDWMEALS SQ ; Start 05/27/18 at 17:00 ; Stop 05/27/18 at 17:22; Status DC Dextrose (Dextrose 50%-Water Syringe) 12.5 gm PRN Q15MIN PRN IV SEE COMMENTS; Start 05/27/18 at 17:00; Stop 05/27/18 at 17:33; Status DC Acetaminophen (Tylenol) 650 mg PRN Q6HRS PRN PO FEVER; Start 05/27/18 at 17:30 Ondansetron HCl (Zofran) 4 mg PRN Q6HRS PRN IV NAUSEA/VOMITING; Start 05/27/18 at 17:30 Morphine Sulfate (Morphine Sulfate) 2 mg PRN Q2HR PRN IV MODERATE TO SEVERE PAIN; Start 05/27/18 at 17:30 Tramadol HCl (Ultram) 50 mg PRN Q6HRS PRN PO MILD TO MODERATE PAIN; Start 05/27 at 17:30 Hydralazine HCl (Apresoline Inj) 10 mg PRN Q4HRS PRN IVP ELEVATED BP, SEE COMMENTS; Start 05/27/18 at 17:30 Docusate Sodium (Colace) 100 mg PRN DAILY PRN PO CONSTIPATION; Start 05/27/18 at 17:30 Albuterol/ Ipratropium (Duoneb) 3 ml RTQID NEB Last administered on 05/28/18at 11:17; Start 05/27/18 at 17:30 Albuterol Sulfate (Ventolin Neb Soln) 2.5 mg PRN Q2HR PRN NEB SHORTNESS OF BREATH; Start 05/27/18 at 17:30 Guaifenesin (Mucinex) 600 mg BID PO Last administered on 05/28/18at 08:30; Start 05/27/18 at 21:00 Potassium Chloride (Klor-Con) 40 meq 1X ONCE PO Last administered on at 18:14; Start 05/27/18 at 17:30; Stop 05/27/18 at 17:31; Status DC Enoxaparin Sodium (Lovenox 40mg Syringe) 40 mg Q24H SQ Last administered on 18:15; Start 05/27/18 at 18:00 Famotidine (Pepcid) 20 mg QHS PO Last administered on 05/27/18at 22:11; Start at 21:00 Insulin Human Lispro (HumaLOG) 0-9 UNITS TIDWMEALS SQ Last administered on 05/28at 08:37; Start 05/28/18 at 08:00 Dextrose (Dextrose 50%-Water Syringe) 12.5 gm PRN Q15MIN PRN IV SEE COMMENTS; Start 05/27/18 at 17:30 Furosemide (Lasix) 40 mg DAILY IVP Last administered on 05/28/18 08:30; Start 05/27/18 at 18:00 Doxycycline Hyclate (Vibra-Tab) 100 mg BID PO Last administered on 05/28/18 08 :29; Start 05/27/18 at 21:00 Lactobacillus Rhamnosus (Culturelle) 1 cap BID PO Last administered on 8/13/ 18at 08:29; Start 05/27/18 at 21:00 Active Scripts Active Reported Atorvastatin Calcium 40 Mg Tablet 40 Mg PO DAILY Gabapentin 300 Mg Capsule 300 Mg PO BID Zoloft (Sertraline Hcl) 50 Mg Tablet 50 Mg PO DAILY Seroquel (Quetiapine Fumarate) 100 Mg Tablet 100 Mg PO HS Meloxicam 7.5 Mg Tablet 7.5 Mg PO BID Calcium 600 + D Tablet (Calcium Carbonate/Vitamin D3) 1 Each Tablet 1 Each PO DAILY Abilify (Aripiprazole) 5 Mg Tablet 1 Tab PO DAILY Amlodipine Besylate 10 Mg Tablet 10 Mg PO DAILY Januvia (Sitagliptin Phosphate) 50 Mg Tablet 50 Mg PO DAILY Vitals/I & O Vital Sign - Last 24 Hours 05/27/18 05/27/18 05/27/18 05/27/18 13:50 14:23 14:42 15:12 Temp 97.9 97.9 Pulse 85 75 85 Resp 20 24 22 B/P (MAP) 125/74 (91) 111/69 (83) 107/60 (76) Pulse Ox 90 93 91 91 O2 Delivery Room Air Nasal Cannula Nasal Cannula Nasal Cannula O2 Flow Rate 2.0 2.0 2.0 05/27/18 05/27/18 05/27/18 05/27/18 15:42 16:31 16:42 17:48 Temp 99.1 99.1 Pulse 82 78 77 80 Resp 18 23 18 16 B/P (MAP) 114/57 (76) 104/55 (71) 107/58 (74) 129/68 (88) Pulse Ox 93 91 93 O2 Delivery Nasal Cannula Nasal Cannula Nasal Cannula O2 Flow Rate 2.0 2.0 2.0 2.0 05/27/18 05/27/18 05/27/18 05/27/18 17:55 19:00 20:30 21:45 Temp 98.8 98.8 Pulse 85 Resp 18 B/P (MAP) 147/82 (103) Pulse Ox 95 O2 Delivery Nasal Cannula Room Air Nasal Cannula Nasal Cannula O2 Flow Rate 2.0 2.0 2.0 05/27/18 05/28/18 05/28/18 05/28/18 23:00 03:00 07:00 07:16 Temp 98.2 98.8 97.7 98.2 98.8 97.7 Pulse 83 82 77 Resp 18 18 16 B/P (MAP) 121/71 (88) 128/77 (94) 122/69 (86) Pulse Ox 94 97 90 97 O2 Delivery Room Air Room Air Room Air Nasal Cannula O2 Flow Rate 3.0 05/28/18 05/28/18 05/28/18 07:50 11:00 11:18 Temp 98.1 98.1 Pulse 75 Resp 16 B/P (MAP) 125/74 (91) Pulse Ox 91 O2 Delivery Nasal Cannula Room Air Room Air O2 Flow Rate 3.0 Intake and Output 05/27/18 05/27/18 05/28/18 15:00 23:00 07:00 Output Total 750 ml 0 ml Balance -750 ml 0 ml URI CHASE MD May 28, 2018 11:31
[2018-05-28 12:00] LABS: % BANDS 1 % (0-9); % LYMPHS 16 % (24-48); % MONOS 1 % (0-10); % SEGS 82 % (35-66); PLT ESTIMATE ADEQUATE (ADEQUATE)
--- NOTE | 2018-05-28 12:14 | CARD ---
MR#: [id number] Date of Study: 05/28/2018 Ordering Physician: BASILIO PATINO, Referring Physician: BASILIO PATINO Tech: Eneida Michaud RDCS APPROVED REPORT EXAM: Two-dimensional and M-mode echocardiogram with Doppler and color Doppler. Other Information Quality : Good INDICATION Dyspnea Question CHF 2D DIMENSIONS RVDd3.3 (2.9-3.5cm)Left Atrium(2D)3.6 (1.6-4.0cm) IVSd1.2 (0.7-1.1cm)Aortic Root(2D)3.3 (2.0-3.7cm) LVDd5.0 (3.9-5.9cm)LVOT Diameter2.0 (1.8-2.4cm) PWd1.1 (0.7-1.1cm)LVDs2.6 (2.5-4.0cm) FS (%) 30.0 %SV93.5 ml LVEF(%)55.0 (>50%) Aortic Valve AoV Peak Shaquille.178.4cm/sAoV VTI35.8cm AO Peak GR.12.7mmHgLVOT Peak Shaquille.125.6cm/s LVOT VTI 28.65cmAO Mean GR.8mmHg VEENA (VMAX)2.39mh1CUZ (VTI)2.63cm2 Mitral Valve MV E Erxhdwwe085.7cm/sMV DECEL [id number] MV A Gkxuufnk89.3cm/sMV [id number] E/A Ratio1.3MVA (PHT)4.43cm2 TDI E/Lateral E'11.8E/Medial E'14.8 Tricuspid Valve TR P. Urvmbzxz392fm/sRAP FUKOAFYP7fiNq TR Peak Gr.53paAdTHAQ52zkOw Pulmonary Vein S1 Ygstvvku29.2cm/sD2 Ixnngqpf90.2cm/s LEFT VENTRICLE The left ventricle is normal size. There is mild concentric left ventricular hypertrophy. The left ve ntricular systolic function is normal and the Ejection Fraction is 55%. There is normal LV segmental wall motion. RIGHT VENTRICLE The right ventricle is normal size. The right ventricular systolic function is normal. ATRIA The left atrium size is normal. The right atrium size is normal. The interatrial septum is intact wit h no evidence for an atrial septal defect or patent foramen ovale as noted on 2-D or Doppler imaging. AORTIC VALVE The aortic valve is calcified but opens well. Doppler and Color Flow revealed no significant aortic r egurgitation. There is no significant aortic valvular stenosis. MITRAL VALVE The mitral valve is calcified but opens well. There is no evidence of mitral valve prolapse. There is no mitral valve stenosis. Doppler and Color-flow revealed trace mitral regurgitation. TRICUSPID VALVE The tricuspid valve is normal in structure and function. Doppler and Color Flow revealed trace tricus pid regurgitation. The PA pressure was estimated at 24 mmHg. There is no tricuspid valve stenosis. PULMONIC VALVE The pulmonic valve is not well visualized. Doppler and Color Flow revealed no pulmonic valvular regur gitation. There is no pulmonic valvular stenosis. GREAT VESSELS The aortic root is normal in size. The ascending aorta is normal in size. The IVC is normal in size a nd collapses >50% with inspiration. PERICARDIAL EFFUSION There is no evidence of significant pericardial effusion. Critical Notification Critical Value: No <Conclusion> The left ventricular systolic function is normal and the Ejection Fraction is 55%. There is mild concentric left ventricular hypertrophy. The left atrium size is normal. The right atrium size is normal. The aortic valve is calcified but opens well. Doppler and Color Flow revealed no significant aortic regurgitation. Doppler and Color-flow revealed trace mitral regurgitation. The mitral valve is calcified but opens well. Doppler and Color Flow revealed trace tricuspid regurgitation. The PA pressure was estimated at 24 mmHg. The pulmonic valve is not well visualized. There is no evidence of significant pericardial effusion. Signed by : Jose Simmons MD Electronically Approved : 05/28/2018 12:13:11
[2018-05-28 15:00] VITALS: BP 134/68
--- NOTE | 2018-05-28 16:05 | CONS ---
DATE OF CONSULTATION: ATTENDING PHYSICIAN: Dr. Escobar. REASON FOR CONSULTATION: Cough. HISTORY OF PRESENT ILLNESS: The patient is a 63-year-old male who was a smoker and alcoholic. He said he was drinking whiskey, then he started coughing and then had emesis. He was a little bit short of breath as well. He feels fine now. He was seen in the Emergency Room, he was placed on couple of liters of oxygen. His chest x-ray was reviewed by me. There is no definite consolidation seen on the chest x-ray, possible right basal atelectasis. PAST MEDICAL HISTORY: History of hypertension, GERD, possible COPD and bipolar disorder and diabetes. PAST SURGICAL HISTORY: No recent surgeries. ALLERGIES: None. MEDICATIONS: Reviewed as listed in the MRAD. REVIEW OF SYSTEMS: As discussed in my history of present illness, otherwise noncontributory. SOCIAL HISTORY: Ongoing tobaccoism and alcoholism. PHYSICAL EXAMINATION: VITAL SIGNS: Stable. NECK: Supple. LUNGS: Clear. CARDIOVASCULAR: Regular rate and rhythm. ABDOMEN: Soft and obese. EXTREMITIES: With trace pitting edema. LABORATORY DATA: Reviewed. White cell count hemoglobin 13.9, platelets are 195. BUN 12, creatinine 0.9. IMPRESSION: 1. Cough, likely related to bronchitis. May have a silent aspiration after drinking whiskey. 2. Ongoing tobaccoism, suspect underlying chronic obstructive pulmonary disease. 3. History of alcoholism. 4. Bilateral lower extremity edema without any obvious congestive heart failure. RECOMMENDATIONS: 1. From a pulmonary standpoint, he looks much better. He has no cough. His chest x-ray is clear. He is afebrile, he could be discharged home on oral antibiotics. The steroids can be discontinued. 2. Smoking cessation counseling provided. 3. Discussed with RN. We will sign off for now. LIZ FULLER MD DR: LILLIAM/lisha JOB#: [id number] / [id number] MARTA
[2018-05-28] MEDS: SERTRALINE 50 MG TABLET. PO SCH (17:36)
[2018-05-28] MEDS: ARIPiprazole 5 MG TABLET PO SCH (17:36)
[2018-05-28] MEDS: CALCIUM CARB/VIT D3 500/200 TABLET. PO SCH (17:37)
[2018-05-28] MEDS: amLODIPine BESYLATE 10 MG TABLET PO SCH (17:37)
[2018-05-28] MEDS: LINAGLIPTIN 5 MG TABLET PO SCH (17:37)
[2018-05-28] MEDS: ENOXAPARIN 40 MG/0.4 ML SYRINGE. SQ SCH (17:38)
[2018-05-28 19:00] VITALS: BP 112/61
[2018-05-28] MEDS ORDERED: INSULIN GLARGINE 300 UNITS/3 ML INSULN.PEN. SQ SCH (21:00)
[2018-05-28] MEDS ORDERED: ATORVASTATIN CALCIUM 40 MG TABLET. PO SCH (21:00)
[2018-05-28] MEDS ORDERED: QUEtiapine 100 MG TABLET. PO SCH (21:00)
[2018-05-28] MEDS ORDERED: INSULIN LISPRO 300 UNITS/3 ML INSULN.PEN. SQ ONE (21:45)
[2018-05-28] MEDS: GABAPENTIN 300 MG CAPSULE. PO SCH (21:48)
[2018-05-28] MEDS: MELOXICAM 7.5 MG TABLET PO SCH (21:49)
[2018-05-28] MEDS: FAMOTIDINE 20 MG TABLET. PO SCH (21:49)
[2018-05-28 23:00] VITALS: BP 110/57
[2018-05-29 03:00] VITALS: BP 129/63
[2018-05-29] MEDS: methylPREDNISolone SOD SUCC PF 40 MG/ML VIAL. IV SCH (06:53)
[2018-05-29 07:00] VITALS: BP 140/71
[2018-05-29] MEDS: IPRATRPIUM/ALBUTEROL 0.5/2.5MG 3 ML NEBU. NEB SCH (07:09)
[2018-05-29] MEDS ORDERED: IPRA3AMP29 NEB (09:16)
[2018-05-29] MEDS ORDERED: DOXY100T PO (09:16)
[2018-05-29] MEDS: CALCIUM CARB/VIT D3 500/200 TABLET. PO SCH (09:26)
[2018-05-29] MEDS: LACTOBACILLUS RHAMNOSUS GG 1 CAPSULE. PO SCH (09:26)
[2018-05-29] MEDS: DOXYCYCLINE HYCLATE 100 MG TABLET PO SCH (09:26)
[2018-05-29] MEDS: FUROSEMIDE 40 MG/4 ML VIAL. IVP SCH (09:26)
[2018-05-29] MEDS: ARIPiprazole 5 MG TABLET PO SCH (09:26)
[2018-05-29] MEDS: SERTRALINE 50 MG TABLET. PO SCH (09:26)
[2018-05-29] MEDS: LINAGLIPTIN 5 MG TABLET PO SCH (09:26)
[2018-05-29 09:28] VITALS: BP 140/71
[2018-05-29] MEDS: amLODIPine BESYLATE 10 MG TABLET PO SCH (09:28)
[2018-05-29] MEDS: GABAPENTIN 300 MG CAPSULE. PO SCH (09:28)
--- NOTE | 2018-05-29 09:28 | PDOC3 ---
Discharge Summary Visit Information Date of Admission: May 27, 2018 Date of Discharge: May 29, 2018 Admitting Diagnosis Comment: acute resp failure, hypoxia copd exacerbation in a smoker bronchitis Unlikely CHF exacerbation dm2 htn h/o vineyardist post sx bipolar morbid obesity tobaccoism hypokalemia Final Diagnosis Problems Medical Problems: (1) COPD exacerbation Status: Acute (2) Cough Status: Acute (3) Shortness of breath Status: Acute Brief Hospital Course Allergies Allergies Coded Allergies Type Severity Reaction Last Updated Verified No Known Drug Allergies 06/07/14 No Vital Signs Vital Signs Date Time Temp Pulse Resp B/P (MAP) Pulse Ox O2 Delivery O2 Flow Rate FiO2 05/29/18 08:00 Room Air 05/29/18 07:11 92 05/29/18 07:00 97.8 62 20 140/71 (94) 97.8 05/29/18 03:00 3.0 Lab Results Laboratory Tests Test 05/27/18 16:30 05/27/18 17:25 05/27/18 17:52 05/27/18 20:58 White Blood Count 8.7 x10^3/uL (4.0-11.0) Red Blood Count 4.48 x10^6/uL (4.30-5.70) Hemoglobin 12.6 g/dL (13.0-17.5) Hematocrit 38.2 % (39.0-53.0) Mean Corpuscular Volume 85 fL (79-100) Mean Corpuscular Hemoglobin 28 pg (25-35) Mean Corpuscular Hemoglobin Concent 33 g/dL (31-37) Red Cell Distribution Width 16.8 % (11.5-14.5) Platelet Count 194 x10^3/uL (140-400) Neutrophils (%) (Auto) 65 % (31-73) Lymphocytes (%) (Auto) 20 % (24-48) Monocytes (%) (Auto) 12 % (0-9) Eosinophils (%) (Auto) 2 % (0-3) Basophils (%) (Auto) 1 % (0-3) Neutrophils # (Auto) 5.7 x10^3uL (1.8-7.7) Lymphocytes # (Auto) 1.7 x10^3/uL (1.0-4.8) Monocytes # (Auto) 1.1 x10^3/uL (0.0-1.1) Eosinophils # (Auto) 0.2 x10^3/uL (0.0-0.7) Basophils # (Auto) 0.1 x10^3/uL (0.0-0.2) Sodium Level 137 mmol/L (136-145) Potassium Level 3.3 mmol/L (3.5-5.1) Chloride Level 103 mmol/L (98-107) Carbon Dioxide Level 28 mmol/L (21-32) Anion Gap 6 (6-14) Blood Urea Nitrogen 12 mg/dL (8-26) Creatinine 0.8 mg/dL (0.7-1.3) Estimated GFR (Cockcroft-Gault) 118.9 Glucose Level 129 mg/dL (70-99) Calcium Level 9.0 mg/dL (8.5-10.1) Creatine Kinase 582 U/L (39-308) Creatine Kinase MB (Mass) 1.6 ng/mL (0.0-3.6) Creatine Kinase MB Relative Index 0.3 % (0-4) Troponin I Quantitative 0.029 ng/mL (0.000-0.055) DM-Beg-W-Type Natriuretic Peptide 23 pg/mL (0-124) O2 Saturation 91 % (92-99) Arterial Blood pH 7.43 (7.35-7.45) Arterial Blood pCO2 at Patient Temp 43 mmHg (35-46) Arterial Blood pO2 at Patient Temp 59 mmHg (65-108) Arterial Blood HCO3 28 mmol/L (21-28) Arterial Blood Base Excess 3 mmol/L (-3-3) FiO2 28.0 Glucose (Fingerstick) 114 mg/dL (70-99) 201 mg/dL (70-99) Test 05/28/18 06:55 05/28/18 07:46 05/28/18 11:02 05/28/18 16:37 White Blood Count 9.2 x10^3/uL (4.0-11.0) Red Blood Count 4.89 x10^6/uL (4.30-5.70) Hemoglobin 13.9 g/dL (13.0-17.5) Hematocrit 41.4 % (39.0-53.0) Mean Corpuscular Volume 85 fL (79-100) Mean Corpuscular Hemoglobin 29 pg (25-35) Mean Corpuscular Hemoglobin Concent 34 g/dL (31-37) Red Cell Distribution Width 16.8 % (11.5-14.5) Platelet Count 195 x10^3/uL (140-400) Neutrophils (%) (Auto) 89 % (31-73) Lymphocytes (%) (Auto) 9 % (24-48) Monocytes (%) (Auto) 1 % (0-9) Eosinophils (%) (Auto) 0 % (0-3) Basophils (%) (Auto) 1 % (0-3) Neutrophils # (Auto) 8.2 x10^3uL (1.8-7.7) Lymphocytes # (Auto) 0.8 x10^3/uL (1.0-4.8) Monocytes # (Auto) 0.1 x10^3/uL (0.0-1.1) Eosinophils # (Auto) 0.0 x10^3/uL (0.0-0.7) Basophils # (Auto) 0.0 x10^3/uL (0.0-0.2) Segmented Neutrophils % 82 % (35-66) Band Neutrophils % 1 % (0-9) Lymphocytes % 16 % (24-48) Monocytes % 1 % (0-10) Platelet Estimate Adequate (ADEQUATE) Sodium Level 135 mmol/L (136-145) Potassium Level 3.8 mmol/L (3.5-5.1) Chloride Level 100 mmol/L (98-107) Carbon Dioxide Level 28 mmol/L (21-32) Anion Gap 7 (6-14) Blood Urea Nitrogen 12 mg/dL (8-26) Creatinine 0.9 mg/dL (0.7-1.3) Estimated GFR (Cockcroft-Gault) 103.8 Glucose Level 252 mg/dL (70-99) Calcium Level 8.8 mg/dL (8.5-10.1) Glucose (Fingerstick) 235 mg/dL (70-99) 305 mg/dL (70-99) 286 mg/dL (70-99) Test 05/28/18 20:34 05/29/18 03:21 05/29/18 07:08 Glucose (Fingerstick) 369 mg/dL (70-99) 223 mg/dL (70-99) 214 mg/dL (70-99) Laboratory Tests Test 05/28/18 11:02 05/28/18 16:37 05/28/18 20:34 05/29/18 03:21 Glucose (Fingerstick) 305 mg/dL (70-99) 286 mg/dL (70-99) 369 mg/dL (70-99) 223 mg/dL (70-99) Test 05/29/18 07:08 Glucose (Fingerstick) 214 mg/dL (70-99) Brief Hospital Course Mr. Myers is a 63 old [place]ese Burmese male, who continues to smoke, admitted for COPD exacerbation, no pneumonia on chest x-ray, being treated for acute bronchitis, was very wheezy on admission. Comanagement pulmonary. Breathing better. Only stayed 24 hours. Rx for nebulizer, steroids taper, doxycycline for 7 days and a nebulizer pro air etc. given Discussed with at a lot of questions. Follow-up with pulmonary she requested contact information for Dr. Ann. Patient seen and examined Discharge time greater than 30 minutes greater than 50% discharge of patient counseling Consults performed pulmonary Procedures performed none Discharge Information Condition at Discharge: Improved, Stable Disposition/Orders: D/C to Home Scheduled Amlodipine Besylate (Amlodipine Besylate) 10 Mg Tablet, 10 MG PO DAILY, #30 Ref 5 (Reported) Entered as Reported by: BEATRIZ GOMEZ on 04/22/15 0853 Last Action: Continued on 05/28/18 163 by FRANKLIN EDMONDS Aripiprazole (Abilify) 5 Mg Tablet, 1 TAB PO DAILY, #30 Ref 1 (Reported) Entered as Reported by: BEATRIZ GOMEZ on 04/22/15 0854 Last Action: Continued on 05/28/18 1631 by FRANKLIN EDMONDS Atorvastatin Calcium (Atorvastatin Calcium) 40 Mg Tablet, 40 MG PO DAILY, ( Reported) Entered as Reported by: ALTON YOUSIF on 05/27/18 2339 Last Action: Continued on 05/28/18 163 by FRANKLIN EDMONDS Calcium Carbonate/Vitamin D3 (Calcium 600 + D Tablet) 1 Each Tablet, 1 EACH PO DAILY, (Reported) Entered as Reported by: BEATRIZ GOMEZ on 04/22/15 0855 Last Action: Converted on 05/28/18 163 by FRANKLIN EDMONDS Doxycycline Hyclate (Doxycycline Hyclate) 100 Mg Tablet, 100 MG PO BID for 7 Days, #14 Prescribed by: URI CHASE on 05/29/18 0916 Gabapentin (Gabapentin) 300 Mg Capsule, 300 MG PO BID, (Reported) Entered as Reported by: ALTON YOUSIF on 05/27/182338 Last Action: Converted on 05/28/18 1631 by FRANKLIN EDMONDS Ipratropium/Albuterol Sulfate (Duoneb 0.5-3(2.5) Mg/3 Ml) 3 Ml Ampul.neb, 3 ML NEB RTQID for 30 Days, #120 Prescribed by: URI CHASE on 05/29/18 0916 Meloxicam (Meloxicam) 7.5 Mg Tablet, 7.5 MG PO BID, (Reported) Entered as Reported by: EARLENE PALACIOS RN on 03/13/17 1130 Last Action: Converted on 05/28/18 1631 by FRANKLIN EDMONDS Quetiapine Fumarate (Seroquel) 100 Mg Tablet, 100 MG PO HS, (Reported) Entered as Reported by: EARLENE PALACIOS RN on 03/13/17 1130 Last Action: Converted on 05/28/18 1631 by FRANKLIN EDMONDS Sertraline Hcl (Zoloft) 50 Mg Tablet, 50 MG PO DAILY for ANTI-DEPRESSANT, Ref 0 (Reported) Entered as Reported by: EARLENE PALACIOS RN on 03/13/17 1130 Last Action: Continued on 05/28/18 1631 by FRANKLIN EDMONDS Sitagliptin Phosphate (Januvia) 50 Mg Tablet, 50 MG PO DAILY, (Reported) Entered as Reported by: WILLI JOYCE on 06/07/14 1457 Last Action: Converted on 05/28/18 1631 by FRANKLIN EDMONDS Discontinued Medications Glimepiride (Glimepiride) 4 Mg Tablet, 4 MG PO DAILY, (Reported) Entered as Reported by: ALTON YOUSIF on 05/27/182338 Last Action: Discontinued on 05/28/1818 by URI BACON MD May 29, 2018 09:28
[2018-05-29] MEDS: MELOXICAM 7.5 MG TABLET PO SCH (09:29)
[2018-05-29] MEDS: INSULIN LISPRO 300 UNITS/3 ML INSULN.PEN. SQ SCH (09:37)
== END 2018-05-29 11:10 | disposition home or self-care (01) | DRG 189 ==
LOC: ER 12:59 → 5 SOUTH 16:14
PROVIDERS: ADMIT Internal Medicine; ATTEND Internal Medicine
DX: J96.01 Acute respiratory failure with hypoxia (principal); J44.1 Chronic obstructive pulmonary disease with (acute) exacerbation; J44.0 Chronic obstructive pulmonary disease with (acute) lower respiratory infection; J20.9 Acute bronchitis, unspecified; E87.6 Hypokalemia; F31.9 Bipolar disorder, unspecified; E11.9 Type 2 diabetes mellitus without complications; I10 Essential (primary) hypertension; F17.210 Nicotine dependence, cigarettes, uncomplicated; K21.9 Gastro-esophageal reflux disease without esophagitis; E66.01 Morbid (severe) obesity due to excess calories; F10.20 Alcohol dependence, uncomplicated; Z85.46 Personal history of malignant neoplasm of prostate; Z68.38 Body mass index [BMI] 38.0-38.9, adult; Z82.49 Family history of ischemic heart disease and other diseases of the circulatory system; Z79.899 Other long term (current) drug therapy; Z79.84 Long term (current) use of oral hypoglycemic drugs
CPT/HCPCS: 36415; 36600; 71045; 80048; 82553; 82805; 82962; 83880; 84484; 85007; 85025; 93005; 93306; 94640; 96374; J1650; J1815; J1940; J2920; J2930; J7620; 99285-25

== ENCOUNTER 2018-07-09 08:21 | Emergency (ER) | payer OTHER ==
[~2018-07-09] VITALS: Ht 175.3 cm; Wt 116.1 kg
[~2018-07-09 08:21] MED LIST changes: -AMLO10TA2 PO; +AMLO10TA6 PO; +ATOR40TA59 PO; -BICA50TA4 PO; +BICA50TA47 PO; +DOXY100T PO; +GABA300C8 PO; +GLIM4TAB2 PO; +IPRA3AMP29 NEB
[2018-07-09 08:30] VITALS: BP 135/76
--- NOTE | 2018-07-09 09:07 | PHYS DOC ---
Past Medical History Past Medical History: Bipolar, Cancer, Diabetes-Type II, Hypertension Additional Past Medical Histor: prostate ca Past Surgical History: TURP Additional Past Surgical Histo: CA prostate, finger tips removed Alcohol Use: Heavy Drug Use: None Adult General Chief Complaint Chief Complaint: UPPER EXTREMITY INJURY HPI HPI Patient is a 63 year old male with history of diabetes type 2, hypertension, bipolar, who presents today with 7 out of 10 pain ascribed as sharp on the left dorsal hand that began on last week after he fell after drinking. Patient states he fell in the lobby of an apartment. Patient denies any loss of consciousness. Denies hitting his head on the ground. He also has previous history of amputation of the index finger through pinky finger PIP joints. Review of Systems Review of Systems Constitutional: Denies fever or chills [] Musculoskeletal: Reports left hand pain Integument: Denies rash or skin lesions [] Neurologic: Denies headache, focal weakness or sensory changes [] All other systems were reviewed and found to be within normal limits, except as documented in this note. Allergies Allergies Allergies Coded Allergies Type Severity Reaction Last Updated Verified No Known Drug Allergies 06/07/14 No Physical Exam Physical Exam Constitutional: Well developed, well nourished, no acute distress, non-toxic appearance. [] Skin: Warm, dry, no erythema, no rash. [] Back: No tenderness, no CVA tenderness. 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 Mild soft tissue swelling noted on the left dorsal hand. Tenderness on palpation along the left dorsal hand diffusely. Full range of motion to the left hand and wrist. No scaphoid tenderness the wrist. Adequate radial medial and ulnar sensation to the left hand. +2 left radial pulse. Cap refill less than 2 seconds and left fingers. Neurologic: Alert and oriented X 3, normal motor function, normal sensory function, no focal deficits noted. [] Psychologic: Affect normal, judgement normal, mood normal. [] Current Patient Data Vital Signs Vital Signs Date Time Temp Pulse Resp B/P (MAP) Pulse Ox O2 Delivery O2 Flow Rate FiO2 07/09/18 08:30 98.6 64 14 135/76 (95) 92 Room Air 98.6 EKG EKG [] Radiology/Procedures Radiology/Procedures []PROCEDURE: HAND LEFT 3V Left hand, 3 views, 07/09/2018: HISTORY: Fall The patient's fingers are held in flexion producing suboptimal delineation of the ends of the second through fourth fingers. There has been previous amputation of a portion of the little finger at the level of the distal end of the proximal phalanx. The distal end of the ring finger also appears to have been amputated at the level of the distal end of the middle phalanx. A similar appearance is the ends of the middle and index fingers. No acute fracture or dislocation is identified. There are mild scattered degenerative changes at interphalangeal joints and the first CMC joint. Moderate soft tissue swelling is present particularly over the dorsum of the hand. IMPRESSION: 1. Postsurgical and degenerative changes as described above. 2. No acute bony abnormality is detected. Electronically signed by: Man Gonzalez MD (07/09/2018 9:37 AM) [facility] DICTATED and SIGNED BY: MAN GONZALEZ MD DATE: 07/09/18930 Course & Med Decision Making Course & Med Decision Making Pertinent Labs and Imaging studies reviewed. (See chart for details) This is a 63-year-old male patient who presents to the ED today with left dorsal hand pain that began on after he fell. He had drunk prior to falling. Left hand x-rays interpreted by radiologist were negative for any acute findings. Patient was discharged with diclofenac. Follow-up with orthopedic doctor in one week if pain continues. Ice elevation encouraged. Patient was encouraged to consider getting help for alcohol use. Staff Physician Addendum: I was working in the ER during the course of this patient's visit. I was available for consultation as needed, but I was not directly involved in the care of this patient. Dragon Disclaimer Dragon Disclaimer This electronic medical record was generated, in whole or in part, using a voice recognition dictation system. Departure Departure Impression: Primary Impression: Sprain of hand, left Additional Impression: ETOHism Disposition: 01 HOME, SELF-CARE Condition: STABLE Referrals: NO PCP (PCP) QUETA POTTER MD follow up in 1-2 weeks Patient Instructions: Hand Contusion, [id number], Joint Sprain Additional Instructions: You were see for left hand sprain after falling. Ice and elevate the extremity. Take the prescribed medications as needed for pain. Follow-up with orthopedic doctor or your own primary care doctor in 1-2 weeks as needed. Consider getting help for alcohol use. Scripts Diclofenac Sodium (DICLOFENAC SODIUM) 50 Mg Tablet.dr 1 TAB PO BID, #20 TAB 0 Refills Prov: GINO MERIDA APRN 07/09/18 Problem Qualifiers Primary Impression: Sprain of hand, left Encounter type: initial encounter Qualified Codes: S63.92XA - Sprain of unspecified part of left wrist and hand, initial encounter GINO MERIDA APRN Jul 09, 2018 09:07 JOANNE MUNGUIA MD Jul 09, 2018 11:33
--- NOTE | 2018-07-09 09:40 | RAD ---
Left hand, 3 views, 07/09/2018: HISTORY: Fall The patient's fingers are held in flexion producing suboptimal delineation of the ends of the second through fourth fingers. There has been previous amputation of a portion of the little finger at the level of the distal end of the proximal phalanx. The distal end of the ring finger also appears to have been amputated at the level of the distal end of the middle phalanx. A similar appearance is the ends of the middle and index fingers. No acute fracture or dislocation is identified. There are mild scattered degenerative changes at interphalangeal joints and the first CMC joint. Moderate soft tissue swelling is present particularly over the dorsum of the hand. IMPRESSION: 1. Postsurgical and degenerative changes as described above. 2. No acute bony abnormality is detected. Electronically signed by: Man Gonzalez MD (07/09/2018 9:37 AM) [facility]
[2018-07-09] MEDS ORDERED: DICL50TA4 PO (09:53)
== END 2018-07-09 10:04 | disposition home or self-care (01) ==
LOC: ER 08:21
DX: S63.502A Unspecified sprain of left wrist, initial encounter (principal); F31.9 Bipolar disorder, unspecified; E11.9 Type 2 diabetes mellitus without complications; I10 Essential (primary) hypertension; F10.20 Alcohol dependence, uncomplicated; Y90.9 Presence of alcohol in blood, level not specified; Z89.022 Acquired absence of left finger(s); W18.30XA Fall on same level, unspecified, initial encounter; Y93.89 Activity, other specified; Y92.038 Other place in apartment as the place of occurrence of the external cause; Y99.8 Other external cause status
CPT/HCPCS: 73130; 99284

== ENCOUNTER 2018-12-22 19:17 | Emergency (ER) | payer OTHER ==
[~2018-12-22] VITALS: Ht 175.3 cm; Wt 117.9 kg
[~2018-12-22 19:17] MED LIST changes: -AMLO10TA6 PO; +AMLO10TA8 PO; +DICL50TA4 PO; +GABA300C18 PO; -GABA300C8 PO
--- NOTE | 2018-12-22 21:01 | PHYS DOC ---
Past Medical History Past Medical History: Bipolar, Cancer, Diabetes-Type II, Hypertension Additional Past Medical Histor: prostate ca Past Surgical History: TURP Additional Past Surgical Histo: CA prostate, finger tips removed Alcohol Use: Heavy Drug Use: None Adult General Chief Complaint Chief Complaint: ALCOHOL INTOXICATION HPI HPI Patient is a 63 year old male who is heavily intoxicated was brought to ED by ambulance for falling through a glass door. He is able to state his name and date of but is unable to name the president, his address, and when asked the month and year he states January 1968. He has a superficial laceration on his occiput left of midline, an elbow abrasion on the left, small scattered superficial lacerations on wrist. He is a poor historian and unable to answer many questions while also getting progressively more agitated with each successive question. When asked to move different extremities he is able to follow commands and has spontaneous eye opening. His partner was able to disclose some information about the patient and event, stating he has a long history of heavy alcoholism. She also relays a history of untreated diabetes and bipolar disorder. He denied SOB, chest pain, fever, chills, JEFFRIES, n/v, weakness. His only complaint was pain at the site of his left elbow abrasion. Review of Systems Review of Systems Constitutional: Denies fever or chills Eyes: Denies change in visual acuity or eye pain HENT: Denies nasal congestion or sore throat Respiratory: Denies cough or shortness of breath Cardiovascular: No additional information not addressed in HPI GI: Denies abdominal pain, nausea, vomiting, bloody stools or diarrhea : Denies dysuria or hematuria Musculoskeletal: Denies back pain. Admits elbow pain on the left. Integument: Denies rash or skin lesions Neurologic: Denies headache, focal weakness or sensory changes Endocrine: Denies polyuria or polydipsia All other systems were reviewed and found to be within normal limits, except as documented in this note. Current Medications Current Medications Current Medications Medications (Trade) Dose Ordered Sig/Tiffanie Start Time Stop Time Status Last Admin Dose Admin Diphtheria/ Tetanus/Acell Pertussis (Boostrix) 0.5 ml ONCE ONCE 12/22/18 23:30 12/22/18 23:31 DC 12/22/18 23:52 0.5 ML Allergies Allergies Allergies Coded Allergies Type Severity Reaction Last Updated Verified No Known Drug Allergies 06/07/14 No Physical Exam Physical Exam Constitutional: Poorly nourished, acute distress, toxic appearance HENT: Normocephalic, bilateral external ears normal, oropharynx moist, no oral exudates, nose normal. < 1 cm superficial laceration on the occiput left of midline. Eyes: Pupils equal and round, non-reactive to light, fixed at 2-3 cm, injected conjunctiva, EOMI Neck: In C-Spine collar, unable to examine ROM Cardiovascular:Heart rate regular rhythm, no murmur. Distant heart sounds. Lungs & Thorax: Bilateral breath sounds clear to auscultation Abdomen: Bowel sounds normal, soft, no tenderness Skin: Scattered abrasions no suturable laceration on the extremities Back: No tenderness, no CVA tenderness. Extremities: tenderness on left elbow w/ an abrasion covering his lateral proximal forearm and distal arm. Clubbing present in his few fingers as he has digit amputations on both hands. Neurologic: Alert and oriented to person. States the month is January, year is 1967, unable to name president or address. He is able to state his first and last name easily, and was able to correctly state his birthday with some difficulty. normal motor function, normal sensory function, no focal deficits noted. [] Psychologic: judgement substantially impaired, mood volatile, agitated Current Patient Data Vital Signs Vital Signs Date Time Temp Pulse Resp B/P (MAP) Pulse Ox O2 Delivery O2 Flow Rate FiO2 12/22/18 22:34 83 16 97/76 (83) 94 Room Air 12/22/18 19:19 98.0 98.0 EKG EKG [] Radiology/Procedures Radiology/Procedures [] Impressions: Wrist and elbow x-ray chest x-ray as well as head and C-spine CT were negative acute. No radial opaque foreign body was identified. Course & Med Decision Making Course & Med Decision Making 63 yo heavy alcoholic male, acutely intoxicated, presents to ED because he fell through a glass door and hit his head. He complains only of pain on the left elbow and denies JEFFRIES, SOB, CP, fever, chills, n/v, and neck pain. Superficial laceration on the occiput left of midline. Superficial lacerations on wrist. A collar for the C-Spine was placed until imaging can be done. Ddx: Fracture - could be present in wrist, elbow, neck. or ribs. Alcoholism TBI SAH SDH Final plan imaging was negative I did on preliminary read of wrist x-ray think there might be a subtle foreign body I did explore the avulsion on the dorsum of his wrist and there was no appreciable foreign body. Patient was much more alert much more sober and will be discharged in the care of his mother. Dragon Disclaimer Dragon Disclaimer This electronic medical record was generated, in whole or in part, using a voice recognition dictation system. Departure Departure Impression: Primary Impression: ETOHism Disposition: 01 HOME, SELF-CARE Condition: IMPROVED Referrals: UNKNOWN PCP NAME (PCP) JOANNE MUNGUAI MD Dec 22, 2018 21:01
--- NOTE | 2018-12-22 22:25 | RAD ---
CT head without contrast. CT cervical spine without contrast. PQRS statement: CT scans at this facility use dose reduction including either automated exposure control, iterative reconstructions, and /or weight based radiation dosing via mA and kV modification when appropriate to reduce radiation dose to as low as reasonably achievable. HISTORY: Trauma, fall through glass door. TECHNIQUE: Noncontrast CT imaging of the and cervical spine multiplanar reconstructions. CT head findings: No intracranial hemorrhage, mass, hydrocephalus, extra-axial fluid collections or infarction. Mild generalized brain atrophy. No acute ischemic changes evident. Paranasal sinuses and mastoids and skull base and calvarium are unremarkable. There is a left orbital floor deformity likely chronic given the absence of fluid in the maxillary sinus and absence of orbital edema, correlate clinically by physical examination. IMPRESSION: No acute intracranial CT abnormality. See discussion above. CT cervical spine findings: Craniocervical junction intact. 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 Cervical vertebral body height and alignment intact. No fracture of the cervical spine. Lung apices and paraspinal tissues unremarkable. Uncovertebral spurs contribute to neural foraminal stenoses. Disc osteophytes with spinal canal stenoses C5-C6 and C6-C7. IMPRESSION: No acute osseous injury of the cervical spine. Cervical disc disease. Electronically signed by: Guille Pizarro MD (12/22/2018 10:22 PM) [facility]
[2018-12-22 22:34] VITALS: BP 97/76
[2018-12-22] MEDS ORDERED: DIPHTH,PERTUSS(ACELL),TET TOX 0.5 ML DISP.SYRIN. VAX IM ONE (23:30)
--- NOTE | 2018-12-22 23:39 | RAD ---
Indication:Fell through a glass door TECHNIQUE: 3 views of right wrist COMPARISON: None FINDINGS/ impression: No acute fracture or dislocation. Mild radiocarpal joint osteoarthritis. Mild first CMC joint osteoarthritis. No radiopaque foreign body. Electronically signed by: Titus Messina DO (12/22/2018 11:35 PM) [facility]
--- NOTE | 2018-12-22 23:40 | RAD ---
Indication:Fell through a glass door TECHNIQUE: 3 views of left elbow COMPARISON: None FINDINGS/ impression: No joint effusion. No acute fracture or dislocation. Mild arthritic changes. No radiopaque foreign body. Electronically signed by: Titus Messina DO (12/22/2018 11:36 PM) [facility]
--- NOTE | 2018-12-22 23:40 | RAD ---
PROCEDURE: PORTABLE CHEST 1V CLINICAL INDICATION: Fell through a glass door. COMPARISON: None FINDINGS: No pneumothorax identified. Cardiac and mediastinal contours unremarkable. No pulmonary consolidation or acute airspace disease. No acute osseous abnormalities identified. IMPRESSION: No pulmonary consolidation or acute airspace disease. Electronically signed by: Titus Messina DO (12/22/2018 11:37 PM) [facility]
== END 2018-12-22 23:55 | disposition home or self-care (01) ==
LOC: ER 19:17
DX: S01.01XA Laceration without foreign body of scalp, initial encounter (principal); S61.511A Laceration without foreign body of right wrist, initial encounter; S50.312A Abrasion of left elbow, initial encounter; F10.229 Alcohol dependence with intoxication, unspecified; Y90.9 Presence of alcohol in blood, level not specified; M50.90 Cervical disc disorder, unspecified, unspecified cervical region; I10 Essential (primary) hypertension; F31.9 Bipolar disorder, unspecified; E11.9 Type 2 diabetes mellitus without complications; W13.8XXA Fall from, out of or through other building or structure, initial encounter; Y93.89 Activity, other specified; Y92.89 Other specified places as the place of occurrence of the external cause; Y99.8 Other external cause status
CPT/HCPCS: 70450; 71045; 72125; 73080; 73110; 90471; 90715; 99284

== ENCOUNTER 2019-02-12 11:05 | Emergency (ER) | payer OTHER ==
[2019-02-12 20:13] LABS: CREATININE 0.8 mg/dL (0.7-1.3); GFR 118.9
[2019-02-12] MEDS ORDERED: NITROGLYCERIN SUBLINGUAL 0.4 MG BOTTLE OF 25. SL PRN (20:15)
[2019-02-12 20:49] LABS: BASO # 0.1 x10^3/uL (0.0-0.2); BASO % 1 % (0-3); EOS # 0.1 x10^3/uL (0.0-0.7); EOS % 2 % (0-3); HEMATOCRIT 40.1 % (39.0-53.0); LYMPH # 1.7 x10^3/uL (1.0-4.8); LYMPH % 23 % (24-48); MEAN CORPUSCULAR HEMOGLOBIN 27 pg (25-35); MEAN CORPUSCULAR HGB CONC 32 g/dL (31-37); MEAN CORPUSCULAR VOLUME 84 fL (79-100); MONO # 0.5 x10^3/uL (0.0-1.1); MONO % 6 % (0-9); NEUT # 5.1 x10^3uL (1.8-7.7); NEUT % 68 % (31-73); PLATELET COUNT 191 x10^3/uL (140-400); RED BLOOD COUNT 4.79 x10^6/uL (4.30-5.70); RED CELL DISTRIBUTION WIDTH 17.3 % (11.5-14.5); WHITE BLOOD COUNT 7.5 x10^3/uL (4.0-11.0)
[2019-02-12 20:52] LABS: PROTHROMBIN TIME PATIENT 12.8 SEC (11.7-14.0)
--- NOTE | 2019-02-13 07:45 | EKG ---
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 Electronically Signed On 02-15-2019 9:42:06 CDT by Brad Todd
[2019-02-13] MEDS ORDERED: ASPIRIN 325 MG TABLET PO SCH (08:00)
--- NOTE | 2019-02-13 08:37 | RAD ---
CHEST PA LATERAL History: CHEST PAIN Comparison: December 22, 2018 Findings: 2 views of the chest are submitted. There is emphysema. There is no pleural fluid or pneumothorax. Pericardial cardiac silhouette is borderline enlarged, similar. There is some increased somewhat reticular appearing opacity at the lung bases greater on the right. Impression: 1. There is increased somewhat reticular appearing opacity at the lung bases greater on the right which may be component of atelectasis. There is emphysema. Electronically signed by: Mickey Macias MD (02/13/2019 8:34 AM) [facility]
== END 2019-02-12 14:05 | disposition home or self-care (01) ==
LOC: ER 11:05
DX: R07.89 Other chest pain (principal); E11.9 Type 2 diabetes mellitus without complications; I10 Essential (primary) hypertension; E78.5 Hyperlipidemia, unspecified; F17.200 Nicotine dependence, unspecified, uncomplicated; E66.9 Obesity, unspecified
CPT/HCPCS: 36415; 71046; 80048; 83690; 83880; 84484; 85025; 85610; 85730; 93005; 99285-25

== ENCOUNTER 2021-11-11 12:55 | Emergency (ER) | payer OTHER ==
[~2021-11-11] VITALS: Ht 175.3 cm; Wt 118.8 kg
[~2021-11-11 12:55] MED LIST changes: +AMLO-187 PO; -AMLO10TA8 PO; -GLIM4TAB2 PO; +GLIM4TAB8 PO
--- NOTE | 2021-11-11 13:47 | RAD ---
Study: XR CHEST 2V Indication: Cough. Comparison: 02/12/2019 Findings: The cardiomediastinal silhouette is again noted to be at the upper limits of normal for size. Similar hilar configuration. Haziness at the lower third of both lungs is similar to the prior and mostly from summation artifact. No confluent airspace infiltrate. No layering effusion or pneumothorax. Impression: Overall similar aeration pattern of the lungs from the 02/12/2019 comparison. No convincing radiograph ic evidence for pneumonia. Electronically signed by: DENG MORGAN MD (11/11/2021 1:45 PM) [facility]
--- NOTE | 2021-11-11 14:11 | EKG ---
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
--- NOTE | 2021-11-11 15:08 | PHYS DOC ---
Past Medical History Past Medical History: Bipolar, Cancer, Diabetes-Type II, Hypertension Additional Past Medical Histor: prostate ca, BIPOLAR (JOHNNY NEGRETE APRN) Past Surgical History: TURP Additional Past Surgical Histo: CA prostate, finger tips removed (JOHNNY NEGRETE APRN) Smoking Status: Never Smoker Alcohol Use: None Drug Use: None (JOHNNY NEGRETE APRN) General Adult EDM: Chief Complaint: COUGH HPI: HPI: Is a 66-year-old male who presents today with cough and headache for approximately 1 week. Patient is a poor historian some information was obtained from the girlfriend who is the primary caregiver through this patient. From what I can obtain from the patient he has been having a cough for a little over a week, he states is not productive, he denies chest pain or shortness of air at this time. When speaking to the girlfriend patient is trying to obtain new primary care he has an appointment November [address] Tucker. When speaking to the girlfriend more she states that the patient has a cough for quite some time it occurs more when he is eating and drinking. (JOHNNY NEGRETE SPECIAL EFFECTS PERSON) Review of Systems: Review of Systems: Constitutional: Denies fever or chills. [] Eyes: Denies change in visual acuity. [] HENT: Denies nasal congestion or sore throat. [] Respiratory: Cough denies shortness of breath. [] Cardiovascular: Denies chest pain or edema. [] GI: Denies abdominal pain, nausea, vomiting, bloody stools or diarrhea. [] : Denies dysuria. [] Musculoskeletal: Denies back pain or joint pain. [] Integument: Denies rash. [] Neurologic: Headache denies focal weakness or sensory changes. [] Endocrine: Denies polyuria or polydipsia. [] Lymphatic: Denies swollen glands. [] Psychiatric: Denies depression or anxiety. [] (JOHNNY NEGRETE SPECIAL EFFECTS PERSON) Heart Score: C/O Chest Pain: N/A Risk Factors: Risk Factors: DM, Current or recent (<one month) smoker, HTN, HLP, family history of CAD, obesity. Risk Scores: Score 0 - 3: 2.5% MACE over next 6 weeks - Discharge Home Score 4 - 6: 20.3% MACE over next 6 weeks - Admit for Clinical Observation Score 7 - 10: 72.7% MACE over next 6 weeks - Early Invasive Strategies (JOHNNY NEGRETE APRN) Current Medications: Cozaar 50 mg daily for hypertension Atorvastatin 40 mg daily Abilify 5 mg daily dapagliflozin 5mg daily Januvia 100 mg Seroquel 100 mg Metformin 500 mg Inhaler (JOHNNY NEGRETE APRN) Allergies: Allergies: Allergies Coded Allergies Type Severity Reaction Last Updated Verified No Known Drug Allergies 11/11/21 No (JOHNNY NEGRETE APRN) Physical Exam: PE: Constitutional: Well developed, well nourished, no acute distress, non-toxic appearance. [] HENT: Normocephalic, atraumatic, bilateral external ears normal, oropharynx moist, no oral exudates, nose normal. [] Eyes: PERRLA, EOMI, conjunctiva normal, no discharge. [] Neck: Normal range of motion, no tenderness, supple, no stridor. [] Cardiovascular:Heart rate regular rhythm, no murmur [] Lungs & Thorax: Bilateral breath sounds clear to auscultation [] Abdomen: Bowel sounds normal, soft, no tenderness, no masses, no pulsatile masses. [] Skin: Warm, dry, no erythema, no rash. [] Back: No tenderness, no CVA tenderness. [] Extremities: No tenderness, no cyanosis, no clubbing, ROM intact, no edema. [] Neurologic: Alert and oriented X 3, normal motor function, normal sensory function, no focal deficits noted. [] Psychologic: Affect normal, judgement normal, mood normal. [] (JOHNNY NEGRETE APRN) Current Patient Data: Labs: Laboratory Tests Test 11/11/21 14:24 Influenza Type A Antigen Negative Influenza Type B Antigen Negative SARS-CoV-2 Antigen (Rapid) Negative Vital Signs: Vital Signs Date Time Temp Pulse Resp B/P (MAP) Pulse Ox O2 Delivery O2 Flow Rate FiO2 11/11/21 13:01 98.5 97 24 183/101 (128) 94 Room Air 98.5 (JOHNNY NEGRETE APRN) EKG: EKG: [] (JOHNNY NEGRETE APRN) Radiology/Procedures: Radiology/Procedures: [REASON: COUGH PROCEDURE: CHEST PA & LATERAL Study: XR CHEST 2V Indication: Cough. Comparison: 02/12/2019 Findings: The cardiomediastinal silhouette is again noted to be at the upper limits of normal for size. Similar hilar configuration. Haziness at the lower third of both lungs is similar to the prior and mostly from summation artifact. No confluent airspace infiltrate. No layering effusion or pneumothorax. Impression: Overall similar aeration pattern of the lungs from the 02/12/2019 comparison. No convincing radiographic evidence for pneumonia. Electronically signed by: DENG MORGAN MD (11/11/2021 1:45 PM) [facility]] (JOHNNY NEGRETE APRN) Course & Med Decision Making: Course & Med Decision Making Pertinent Labs and Imaging studies reviewed. (See chart for details) 1530 did review radiological and laboratory results with patient. Did inform him that there is no acute process identified on any of the results. Patient is to keep follow-up appointment with Dr. Tucker on November 16, 2021 for further management of his cough. Patient did state he forgot to take his blood pressure medications this morning his blood pressure currently is 180/102. Patient denies chest pain or shortness of breath at this time. Patient verbalizes understanding of the need for follow-up for further management of this cough. Patient was also informed that his Covid's PCR is pending and that he can still have COVID-19, he is still continue to quarantine per CDC guidelines until the results are back. (JOHNNY NEGRETE APRN) Dragon Disclaimer: Dragon Disclaimer: This electronic medical record was generated, in whole or in part, using a voice recognition dictation system. (JOHNNY NEGRETE APRN) Departure Departure Impression: Primary Impression: Suspected 2019 novel coronavirus infection Additional Impression: Cough Disposition: HOME / SELF CARE / HOMELESS Condition: STABLE Referrals: UNKNOWN PCP NAME (PCP) RAFITA TUCKER MD Patient Instructions: Cough, Adult Additional Instructions: Continue to take all your medications as prescribed including your blood pressure medications Follow-up with Dr. Tucker next week as previously planned Until your Covid PCR comes back please continue to quarantine for the next 24 to 48 hours until those results are back. You have been tested for or diagnosed with COVID-19. It is an infection caused by a new type of coronavirus. COVID-19 will cause cold-like or mild flu symptoms in most. It can cause more severe symptoms like problems breathing in some. There is no treatment for COVID-19. The body will clear the infection over time. Self-care will help to ease discomfort. Steps to Take: Self-Care Rest as needed. Healthy habits may help you feel better. Steps include: Choose healthy foods including fruits and vegetables. Drink water throughout the day. Get plenty of sleep each night. If you smoke, try to quit. It may ease breathing. Avoid alcohol. Keep Others Healthy The virus can spread to others. Droplets are released every time you sneeze or cough. The droplets can get into the mouth, nose, or eyes of people near you and lead to infection. To lower the chances of spreading COVID-19 to others: Stay at home until your doctor has said it is safe to leave. If you tested positive this will mean staying isolated until both of the following are true: At least 10 days have passed since the start of illness. You are free of fever for at least 72 hours without the use of medicine. During this time: - Avoid public areas, events, or transportation. Do not return to work or school until your doctor has said it is safe to do so. - Call ahead if you need to go to a medical center. Let them know you may have COVID-19. It will help them guide you where to go. They may also ask you to wear a facemask when you come to the office. - If you call for emergency medical services, let them know you may have COVID- 19. While at home: - Try to avoid close contact with others. Stay about 6 feet away. - If possible, spend most of your time in a separate room from others. - Use a face mask if you will be in close contact with others such as sharing a room or vehicle. - Have someone wipe down common surfaces in the home. Use household sleeping room cleaner every day on areas like doorknobs, counters, or sinks. - Cough or sneeze into a tissue. Throw the tissue away right after use. If a tissue is not available, cough or sneeze into your elbow. - Wash your hands often. Wash them after sneezing or coughing. Use soap and water and wash for at least 20 seconds. Alcohol based hand coke still cleaner can be used if soap and water is not available. - Do not prepare food for others. Avoid sharing personal items like forks, spoons, or toothbrushes. - Avoid close contact with pets while you are sick. There is no evidence of the virus passing to pets. This is a safety step until more is known about this virus. Isolation can be frustrating. Social interaction can help. Keep in touch with friends and family through phone and tech options. You can still interact with others in your home, just keep a safe distance of about 6 feet. Follow-up: Your doctors office will check in with you to see if there are any changes in your health. You may be asked to keep track of symptoms to share with them. They will also let you know when you are clear to be in public again. Problems to Look Out For: Contact your doctor if your recovery is not going as you expect. Get emergency care if you have problems such as: - Trouble breathing - Nonstop chest pain or pressure - Changes in awareness, confusion, or problems waking - Lips or face have bluish color - Worsening of symptoms If you think you have an emergency, call for emergency medical services right away. As taken from [facility] Attending Signature Attending Signature I have reviewed the PA/BUCKLE SEWER's note and plan of care. I was available for consultation as needed during the patient's visit in the emergency department. I agree with the clinical impression, plan, and disposition. (GAVINO HYDE DO) JOHNNY NEGRETE APRN Nov 11, 2021 15:08 GAVINO HYDE DO Nov 12, 2021 07:26
[2021-11-11 15:20] LABS: INFLUENZA A PATIENT NEGATIVE (NEGATIVE); INFLUENZA B PATIENT NEGATIVE (NEGATIVE)
[2021-11-11 15:40] VITALS: BP 172/95
--- NOTE | 2021-11-12 17:54 | NUR ---
IP: Attempted to contact pt concerning covid results. No answer, no voicemail.
--- NOTE | 2021-11-15 13:28 | NUR ---
IP Attempted a second time to contact pt concerning covid results. No answer and no voicemail.
== END 2021-11-11 15:49 | disposition home or self-care (01) ==
LOC: ER 12:55
DX: U07.1 COVID-19 (principal); R05.9 Cough, unspecified; R51.9 Headache, unspecified; R07.89 Other chest pain; F31.9 Bipolar disorder, unspecified; E11.9 Type 2 diabetes mellitus without complications; I10 Essential (primary) hypertension
CPT/HCPCS: 71046; 87428; 93005; 99285; U0003; U0005